=== PATIENT | male | born 1955 | race Caucasian/White ===

== ENCOUNTER 2021-01-23 07:02 | Inpatient (IN) | payer OTHER ==
[2021-01-23 07:32] LABS: Absolute Lymphocytes (CBC) 0.5 K/uL (0.7-4.9); Basophils % 0.8 % (0-1.3); Hematocrit 29.1 % (39.6-49.0); Lymphocytes % 13.1 % (15.3-44.8); MPV 8.6 fL (7.6-11.3); RBC Red Blood Cell Count 2.65 M/uL (4.33-5.43)
[2021-01-23] MEDS ORDERED: NA CHLORIDE 0.9% 0 ML ONE (07:51)
[2021-01-23] MEDS ORDERED: METRONIDAZOLE 500mg IVPB 500 MG/100 ML BAG IV ONE (07:51)
[2021-01-23 07:53] LABS: Albumin 2.1 g/dL (3.4-5.0); Bilirubin Direct 0.7 mg/dL (0-0.2); Bilirubin Total 0.9 mg/dL (0.2-1.0); Potassium 4.3 mmol/L (3.5-5.1); Protein, Total 6.7 g/dL (6.4-8.2)
--- NOTE | 2021-01-23 09:34 | EDPHYS ---
Physician Documentation [facility] Name: Darryn Tristan Age: 65 yrs Sex: Male : 1955 Arrival Date: 01/23/2021 Time: 07:13 Bed 6 Private MD: ED Physician Vanessa Peacock HPI: 01/23 09:32 This 65 yrs old Male presents to ER via EMS with complaints of hypoglycemia. ma2 09:32 Onset: The symptoms/episode began/occurred gradually, 1 day(s) ago. Severity of ma2 symptoms: At their worst the symptoms were moderate in the emergency department the symptoms are unchanged. The patient has not experienced similar symptoms in the past. Historical: - Allergies: 07:16 No Known Allergies; jd3 - Home Meds: 07:16 glimepiride 4 mg Oral tab 2 tabs once daily [Active]; metformin 500 mg Oral tab 2 tabs jd3 daily [Active]; Levemir FlexTouch U-100 Insulin subcutaneous 34 unit daily [Active]; Bystolic 5 mg oral tab 1 tab once daily [Active]; lisinopril-hydrochlorothiazide 20-12.5 mg oral tab 0.5 tabs once daily [Active]; atorvastatin 40 mg oral tab 1 tab once daily [Active]; levothyroxine 100 mcg cap 1 cap once daily [Active]; pantoprazole 40 mg oral TbEC 2 tabs once daily [Active]; Augmentin 875-125 mg Oral tab "when needed" [Active]; 07:25 aspirin 81 mg Oral chew 1 tab once daily [Active]; gabapentin 300 mg oral cap "when jd3 needed" [Active]; topiramate 25 mg oral tab 1 tab once daily [Active]; - PMHx: 07:16 Hypertensive disorder; Diabetes mellitus; jd3 - Immunization history:: Adult Immunizations up to date, Client reports receiving the 2nd dose of the Covid vaccine. - Social history:: Smoking status: Patient/guardian denies using tobacco, but has a distant history of tobacco abuse, Patient/guardian denies using alcohol, street drugs, The patient lives with family. - Family history:: not pertinent. ROS: 09:32 Constitutional: Negative for fever, chills, and weight loss. ma2 09:32 All other systems are negative. Exam: 09:32 Constitutional: This is a well developed, well nourished patient who is awake, alert, ma2 and in no acute distress. Head/Face: Normocephalic, atraumatic. Eyes: Pupils equal round and reactive to light, extra-ocular motions intact. Lids and lashes normal. Conjunctiva and sclera are non-icteric and not injected. Cornea within normal limits. Periorbital areas with no swelling, redness, or edema. ENT: Nares patent. No nasal discharge, no septal abnormalities noted. Tympanic membranes are normal and external auditory canals are clear. Oropharynx with no redness, swelling, or masses, exudates, or evidence of obstruction, uvula midline. Mucous membranes moist. Neck: Trachea midline, no thyromegaly or masses palpated, and no cervical lymphadenopathy. Supple, full range of motion without nuchal rigidity, or vertebral point tenderness. No Meningismus. Chest/axilla: Normal chest wall appearance and motion. Nontender with no deformity. No lesions are appreciated. Cardiovascular: Regular rate and rhythm with a normal S1 and S2. No gallops, murmurs, or rubs. Normal PMI, no JVD. No pulse deficits. Respiratory: Lungs have equal breath sounds bilaterally, clear to auscultation and percussion. No rales, rhonchi or wheezes noted. No increased work of breathing, no retractions or nasal flaring. Abdomen/GI: Soft, non-tender, with normal bowel sounds. No distension or tympany. No guarding or rebound. No evidence of tenderness throughout. Skin: Warm, dry with normal turgor. Normal color with no rashes, no lesions, and no evidence of cellulitis. MS/ Extremity: Pulses equal, no cyanosis. Neurovascular intact. Full, normal range of motion. Neuro: Awake and alert, GCS 15, oriented to person, place, time, and situation. Cranial nerves II-XII grossly intact. Motor strength 5/5 in all extremities. Sensory grossly intact. Cerebellar exam normal. Normal gait. Vital Signs: 07:27 BP 125 / 60; Pulse 65; Resp 16 S; Temp 98.4(O); Pulse Ox 98.4% on R/A; Weight 44.63 kg jd3 (R); Height 6 ft. 3 in. (190.50 cm) (R); Pain 2/10; 08:30 BP 116 / 71; Pulse 61; Resp 15 S; Pulse Ox 99% on R/A; jd3 10:58 BP 105 / 60; Pulse 67; Resp 19 S; Pulse Ox 98% on R/A; jd3 07:27 Body Mass Index 12.30 (44.63 kg, 190.50 cm) jd3 MDM: 07:15 Patient medically screened. ma2 09:32 Differential Diagnosis Patient has hypoglycemia, on oral hypoglycemic and insulin, will [facility] admit for observation. Data reviewed: vital signs, nurses notes, EMS record. Counseling: I had a detailed discussion with the patient and/or guardian regarding: the historical points, exam findings, and any diagnostic results supporting the discharge/admit diagnosis, the presence of at least one elevated blood pressure reading (>120/80) during this emergency department visit, the need for outpatient follow up. Response to treatment: the patient's symptoms have markedly improved after treatment. 01/23 07:15 Order name: Basic Metabolic Panel; Complete Time: 09:10 [facility] 01/23 07:15 Order name: CBC with Diff ak2 01/23 07:15 Order name: Hepatic Function; Complete Time: 09:10 [facility] 01/23 07:15 Order name: Lipase; Complete Time: 09:10 [facility] 01/23 07:33 Order name: Glucose, Ancillary Testing; Complete Time: 07:50 EDMS 01/23 07:51 Order name: COVID-19 SARS RT PCR (Document "Date of Onset" if Symptomatic); Complete [facility] Time: 09:01/23 07:15 Order name: IV Saline Lock; Complete Time: 07:28 [facility] 01/23 07:15 Order name: Labs collected and sent; Complete Time: 07:28 [facility] 01/23 07:25 Order name: Diet Regular; Complete Time: 07:25 d3 01/23 09:48 Order name: Glucose, Ancillary Testing EDMS Administered Medications: 07:57 Drug: Flagyl (metroNIDAZOLE) 500 mg Volume: 100 ml; Route: IVPB; Rate: 200 ml/hr; jd3 Infused Over: 30 mins; Site: left antecubital; 08:30 Follow up: Response: No adverse reaction; IV Status: Completed infusion; IV Intake: jd3 100ml 09:47 Drug: D50W 25 ml Route: IVP; Site: left antecubital; jd3 10:45 Follow up: Response: No adverse reaction jd3 10:57 Drug: D5-NS 1000 ml Route: IV; Rate: 50 ml/hr; Site: left forearm; jd3 11:16 Follow up: Response: No adverse reaction; IV Status: Infusion continued upon admission jd3 Disposition Summary: 01/23/21 09:33 Hospitalization Ordered Hospitalization Status: Observation ma2 Provider: Moreno Prasad [facility] Location: Telemetry/MedSurg (observation) ma2 Condition: Stable ma2 Problem: new ma2 Symptoms: are unchanged ma2 Bed/Room Type: Standard [facility] Room Assignment: 223(01/23/21 10:57) eb Diagnosis - Other hypoglycemia ma2 Discharge Instructions: - Discharge Summary Sheet jd3 Forms: - Medication Reconciliation Form ma2 - SBAR form ma2 Signatures: Dispatcher [employer] Dale Whalen RN RN jd3 Vanessa Peacock MD MD ma2 Rhoda Servin Corrections: (The following items were deleted from the chart) :57 09:33 ma2 eb
--- NOTE | 2021-01-23 09:34 | ER ---
Nurse's Notes [facility] Name: Darryn Tristan Age: 65 yrs Sex: Male : 1955 Arrival Date: 01/23/2021 Time: 07:13 Bed 6 Private MD: Diagnosis: Other hypoglycemia Presentation: 01/23 07:13 Chief complaint: EMS states: "we were toned out for a pt with hypoglycemia. this has jd3 been the second time recently. he reported that his blood sugar is generally controlled until he got a stomach infection that his primary is helping with treating. this morning his blood sugar was low at 53. we started a 22 G IV to the left FA. we gave 25 G of sugar and it came up to 123.". Coronavirus screen: At this time, the client does not indicate any symptoms associated with coronavirus-19. Ebola Screen: Patient negative for fever greater than or equal to 101.5 degrees Fahrenheit, and additional compatible Ebola Virus Disease symptoms. Initial Sepsis Screen: Does the patient meet any 2 criteria? No. Patient's initial sepsis screen is negative. Does the patient have a suspected source of infection? No. Patient's initial sepsis screen is negative. Risk Assessment: Do you want to hurt yourself or someone else? Patient reports no desire to harm self or others. Onset of symptoms was January 23, 2021. 07:13 Method Of Arrival: EMS: [facility] jd3 07:13 Acuity: ANGEL 3 jd3 Historical: - Allergies: 07:16 No Known Allergies; jd3 - Home Meds: 07:16 glimepiride 4 mg Oral tab 2 tabs once daily [Active]; metformin 500 mg Oral tab 2 tabs jd3 daily [Active]; Levemir FlexTouch U-100 Insulin subcutaneous 34 unit daily [Active]; Bystolic 5 mg oral tab 1 tab once daily [Active]; lisinopril-hydrochlorothiazide 20-12.5 mg oral tab 0.5 tabs once daily [Active]; atorvastatin 40 mg oral tab 1 tab once daily [Active]; levothyroxine 100 mcg cap 1 cap once daily [Active]; pantoprazole 40 mg oral TbEC 2 tabs once daily [Active]; Augmentin 875-125 mg Oral tab "when needed" [Active]; 07:25 aspirin 81 mg Oral chew 1 tab once daily [Active]; gabapentin 300 mg oral cap "when jd3 needed" [Active]; topiramate 25 mg oral tab 1 tab once daily [Active]; - PMHx: 07:16 Hypertensive disorder; Diabetes mellitus; jd3 - Immunization history:: Adult Immunizations up to date, Client reports receiving the 2nd dose of the Covid vaccine. - Social history:: Smoking status: Patient/guardian denies using tobacco, but has a distant history of tobacco abuse, Patient/guardian denies using alcohol, street drugs, The patient lives with family. - Family history:: not pertinent. Screenin:28 Abuse screen: Denies threats or abuse. Nutritional screening: No deficits noted. jd3 Tuberculosis screening: No symptoms or risk factors identified. Fall Risk Gait- Weak (10 pts.). Total Foster Fall Scale indicates No Risk (0-24 pts). Assessment: 07:32 General: Appears in no apparent distress. comfortable, Behavior is calm, cooperative. jd3 Pain: Complains of pain in generalized abdomal pain. Neuro: Level of Consciousness is awake, alert, obeys commands, Oriented to person, place, time, situation. Cardiovascular: Capillary refill < 3 seconds Patient's skin is warm and dry. Cardiovascular: Edema is 1+ to BLE nonpitting. Respiratory: Airway is patent Respiratory effort is even, unlabored, Respiratory pattern is regular, symmetrical, Breath sounds are clear bilaterally. GI: Reports lower abdominal pain, upper abdominal pain. Musculoskeletal:. 08:29 Reassessment: Patient and/or family updated on plan of care and expected duration. Pain jd3 level reassessed. Patient is alert, oriented x 3, equal unlabored respirations, skin warm/dry/pink. pt ate approx 70% of breakfast. 09:30 Reassessment: reassessed pt fsbs, 58, provider notified, new order for 1/2 amp d50, [facility] provided pt with juice and apple sauce. 10:58 Reassessment: Patient appears in no apparent distress at this time. No changes from [facility] previously documented assessment. Patient and/or family updated on plan of care and expected duration. Pain level reassessed. Patient is alert, oriented x 3, equal unlabored respirations, skin warm/dry/pink. Vital Signs: 07:27 BP 125 / 60; Pulse 65; Resp 16 S; Temp 98.4(O); Pulse Ox 98.4% on R/A; Weight 44.63 kg jd3 (R); Height 6 ft. 3 in. (190.50 cm) (R); Pain 2/10; 08:30 BP 116 / 71; Pulse 61; Resp 15 S; Pulse Ox 99% on R/A; jd3 10:58 BP 105 / 60; Pulse 67; Resp 19 S; Pulse Ox 98% on R/A; jd3 07:27 Body Mass Index 12.30 (44.63 kg, 190.50 cm) jd3 ED Course: 07:13 Patient arrived in ED. jd3 07:15 Vanessa Peacock MD is Attending Physician. ma2 07:16 Triage completed. jd3 07:27 Dale Mtz RN is Primary Nurse. jd3 07:27 Arm band placed on. jd3 07:28 Maintain EMS IV. Dressing intact. Good blood return noted. Site clean \\T\\ dry. Gauge \\T\\ rebecca 3 site: 18 G left AC. 07:39 Patient has correct armband on for positive identification. Bed in low position. Call jd3 light in reach. Side rails up X2. residential monitor on. Pulse ox on. NIBP on. 09:12 clean beside commode. kd3 09:33 Moreno Prasad DO is Hospitalizing Provider. ma2 11:41 No provider procedures requiring assistance completed. Patient admitted, IV remains in jd3 place. Administered Medications: 07:57 Drug: Flagyl (metroNIDAZOLE) 500 mg Volume: 100 ml; Route: IVPB; Rate: 200 ml/hr; jd3 Infused Over: 30 mins; Site: left antecubital; 08:30 Follow up: Response: No adverse reaction; IV Status: Completed infusion; IV Intake: jd3 100ml 09:47 Drug: D50W 25 ml Route: IVP; Site: left antecubital; jd3 10:45 Follow up: Response: No adverse reaction jd3 10:57 Drug: D5-NS 1000 ml Route: IV; Rate: 50 ml/hr; Site: left forearm; jd3 11:16 Follow up: Response: No adverse reaction; IV Status: Infusion continued upon admission jd3 Intake: 08:30 IV: 100ml; Total: 100ml. jd3 Outcome: 09:33 Decision to Hospitalize by Provider. ma2 11:41 Admitted to Med/surg accompanied by tech, via wheelchair, room 223, with chart, Report alba called to Mihaela PINK 11:41 Condition: stable 11:41 Instructed on the need for admit, Demonstrated understanding of instructions. 11:42 Patient left the ED. alba Signatures: Dale Mtz RN RN Vanessa Kay MD MD ma2 Theresa Abraham kd3 Corrections: (The following items were deleted from the chart) 07:39 07:32 General: Appears in no apparent distress. comfortable, alba willis 10:58 07:28 Maintain EMS IV. Dressing intact. Good blood return noted. Site clean \\T\\ dry. jd3 Gauge \\T\\ site: 22 G left AC. jreina
[2021-01-23] MEDS ORDERED: D50W 50 ML IV ONE (09:40)
[2021-01-23] MEDS ORDERED: D5 0.9 NS 1,000 ML IV ONE (10:48)
--- NOTE | 2021-01-23 11:00 | P.HP ---
Certification for Inpatient Patient admitted to: Inpatient With expected LOS: >2 Midnights Patient will require the following post-hospital care: None Practitioner: I am a practitioner with admitting privileges, knowledge of patient current condition, hospital course, and medical plan of care. Services: Services provided to patient in accordance with Admission requirements found in Title 42 Section 412.3 of the Code of Federal Regulations Patient History Date of Service: 01/23/21 Primary Care Provider: Ilsa Villar NP; Nephrology-Dr. Velazquez; GI-Dr. Araya Reason for admission: Hypoglycemia History of Present Illness: 65-year-old male with history of chronic renal disease, diabetes mellitus type 2, hypertension, alcoholic cirrhosis and anemia of chronic disease. Patient presented to the emergency room with low blood sugar. He was found to have blood sugar low 50. He also reports that EMS was in his house yesterday for low blood sugar. He denied any significant chest pain, shortness of breath. He does report of chronic diarrhea. His medications have been recently adjusted. Patient takes glimepiride, Metformin and Lantus. He came to the ER for further evaluation. Patient found to have hypoglycemia. Initial blood sugar 58. White count 4.2, hemoglobin 9.5. Platelet count 104. Sodium 142, potassium 4.3. BUN 48, creatinine 3.85 with a GFR of 16. Bicarb is 14. Lipase 532. AST ALT reviewed. Covid test negative. Patient was started on IV fluids. Patient admitted for further evaluation and treatment. When saw the patient in ER, patient reports that his diarrhea has been chronic over the past 3 months. Patient seen by GI in the past with prior liver ultrasound showing liver cirrhosis in 2016. Patient reports that his medications have been recently adjusted by PCP for his blood sugar. Thyroid medication also recently adjusted. Patient also takes blood pressure medication as well. Patient recently seen by hematology for his anemia and thrombocytopenia. Allergies No Known Allergies Allergy (Unverified 04/23/20 10:39) - Past Medical/Surgical History Diabetic: Yes -: Diabetes mellitus type 2 insulin-dependent -: Hypertension -: Alcoholic liver cirrhosis -: Chronic renal disease -: Anemia of chronic disease -: Chronic thrombocytopenia likely related to liver disease -: Seasonal allergies -: GERD -: History of alcohol abuse Past Surgical History: Reviewed- Non-Contributory Psychosocial/ Personal History: Patient lives at home. Patient is - Family History Family History: Reviewed- Non-Contributory - Social History Smoking Status: Never smoker Alcohol use: Yes CD- Drugs: No Caffeine use: Yes Place of Residence: Home Review of Systems General: Weakness, Malaise, As per HPI Eyes: Unremarkable ENT: Unremarkable Respiratory: Unremarkable Cardiovascular: Unremarkable Gastrointestinal: Unremarkable Genitourinary: Unremarkable Musculoskeletal: Unremarkable Integumentary: Unremarkable Neurological: Unremarkable Lymphatics: Unremarkable Physical Examination - Studies Laboratory Data (last 24 hrs) 01/23/21 07:22: WBC 4.20 L, Hgb 9.5 L, Hct 29.1 L, Plt Count 104 L 01/23/21 07:22: Sodium 142, Potassium 4.3, BUN 48 H, Creatinine 3.85 H D, Glucose 94, Total Bilirubin 0.9, AST 13 L, ALT 10 L, Alkaline Phosphatase 142 H, Lipase 532 H Assessment and Plan - Plan COVID: Negative Physical Exam: GENERAL: The patient is a well-developed, well-nourished, in no apparent distress. Alert and oriented x3. VITAL SIGNS: Reviewed HEENT: Head is normocephalic and atraumatic. Extraocular muscles are intact. Pupils are equal, round, and reactive to light and accommodation. Nares appeared normal. Mouth is well hydrated and without lesions. Mucous membranes are moist. NECK: Supple. No carotid bruits. No lymphadenopathy or thyromegaly. LUNGS: Clear to auscultation. No crackles or wheezes are heard. HEART: Regular rate and rhythm, no appreciable gallops, rubs, murmurs or extra heart sounds ABDOMEN: Patient with some ascites. EXTREMITIES: Without any cyanosis, clubbing, rash, lesions or peripheral edema. NEUROLOGIC: The patient is oriented to person, place and time. Strength and sens ation are grossly intact. Face is symmetric. SKIN: No significant edema to the lower extremities. Impression: Hypoglycemia with diabetes mellitus type 2 insulin-dependent Acute on chronic renal disease stage IV with metabolic acidosis Alcoholic liver cirrhosis Chronic diarrhea Hypertension Anemia of chronic disease Chronic thrombocytopenia likely related to liver disease Hypothyroidism GERD Plan: Hypoglycemia with diabetes mellitus type 2 insulin-dependent: Patient will be admitted for further evaluation and treatment. We will start D5 half-normal at 50 cc/h to maintain blood sugar. Will monitor blood sugars closely. Will check A1c. Discontinue glimepiride and metformin at this time. We will also discont inue Levemir and continue sliding scale only. Will monitor and adjust medication appropriately. Anticipate improvement over the next 72 hours. Acute on chronic renal disease stage IV with metabolic acidosis: We will start IV fluids. We will also start sodium bicarbonate. Will discuss with nephrology who has been consulted. Will check renal ultrasound. Await further r ecommendations. Alcoholic liver cirrhosis: Patient with prior liver ultrasound in 2016 showed cirrhosis. Will consult GI for further recommendation. Will check hepatitis panel and HIV panel. Will monitor liver function test. Chronic diarrhea: We will discontinue Flagyl. Provide lactobacillus. Will check stool studies for evaluation. Will check C. difficile as well. GI consulted for further recommendation. Will provide Imodium as needed. Hypertension: Discontinue lisinopril hydrochlorothiazide. Continue Bystolic w ith parameters in place. Will monitor and adjust medication appropriately. Anemia of chronic disease : This is likely of chronic disease related to his liver and kidney disease. Will monitor closely. Maintain hemoglobin above 7.5. Patient has been seen by hematology recently. Chronic thrombocytopenia likely related to liver disease: This is likely related to his liver disease. Hypothyroidism: Medication recently adjusted by PCP. Continue with levothyroxine 125 mcg daily. Will check TSH and free T4. GERD: Continue Protonix. Code Status: Full Code DVT prophylaxis: SCDs Advanced Care Planning-30 minutes: Home at discharge Discharge Plan: Home Plan to discharge in: Greater than 2 days - Advance Directives Does patient have a Living Will: Yes Does patient have a Durable POA for Healthcare: No - Code Status/Comfort Care Code Status Assessed: Yes (Patient is full code) Time Spent Managing Pts Care (In Minutes): 55
--- NOTE | 2021-01-23 11:55 | P.CNS ---
Date of Consult: 01/23/21 Reason for Consult: ESTEVAN/ /CKD Requesting Physician: Moreno Prasad Primary Care Provider: Ilsa Villar NP; Nephrology-Dr. Velazquez; GI-Dr. Araya Chief Complaint: Hypoglycemia History of Present Illness: 65-year-old male with history of chronic renal disease, diabetes mellitus type 2, hypertension, alcoholic cirrhosis and anemia of chronic disease. Patient presented to the emergency room with low blood sugar. He was found to have blood sugar low 50. He also reports that EMS was in his house yesterday for low blood sugar. He denied any significant chest pain, shortness of breath. He does report of chronic diarrhea. His medications have been recently adjusted. Patient takes glimepiride, Metformin and Lantus. He came to the ER for further evaluation. 09:32 This 65 yrs old Male presents to ER via EMS with complaints of hypoglycemia. ma2 09:32 Onset: The symptoms/episode began/occurred gradually, 1 day(s) ago. Severity of ma2 symptoms: At their worst the symptoms were moderate in the emergency department the symptoms are unchanged. The patient has not experienced similar symptoms in the past. Allergies No Known Allergies Allergy (Unverified 04/23/20 10:39) Home medications list reviewed: Yes Home Medications: Aspirin 1 tab PO DAILY 01/23/21 Atorvastatin Calcium 1 tab PO DAILY 01/23/21 Cholecalciferol (Vitamin D3) [Vitamin D3] 1 tab PO DAILY 01/23/21 Gabapentin 1 tab PO DAILY PRN 01/23/21 Glimepiride 1 tab PO BID 01/23/21 Insulin Detemir [Levemir] 34 units SQ DAILY 01/23/21 Levothyroxine [Synthroid*] 1 tab PO DAILY 01/23/21 Lisinopril/Hydrochlorothiazide [Lisinopril-Hctz 20-12.5 mg Tab] 0.5 tab PO DAILY 01/23/21 Metformin HCl 1 tab PO BID 01/23/21 Nebivolol HCl [Bystolic] 2 tab PO DAILY 01/23/21 [place]-3/Dha/Epa/Fish Oil [Fish Oil 1,000 mg Softgel] 1 tab PO DAILY 01/23/21 Pantoprazole Sodium 1 tab PO BID 01/23/21 Topiramate 1 tab PO DAILY 01/23/21 - Past Medical/Surgical History Diabetic: Yes -: Diabetes mellitus type 2 insulin-dependent -: Hypertension -: Alcoholic liver cirrhosis -: Chronic renal disease -: Anemia of chronic disease -: Chronic thrombocytopenia likely related to liver disease -: Seasonal allergies -: GERD -: History of alcohol abuse Psychosocial/ Personal History: Patient lives at home. Patient is - Social History Alcohol use: Yes CD- Drugs: No Caffeine use: Yes Place of Residence: Home Review of Systems 10-point ROS is otherwise unremarkable Gastrointestinal: Diarrhea Neurological: Weakness Physical Examination General: In no apparent distress, Oriented x3, Cooperative HEENT: Atraumatic Neck: Supple Respiratory: Clear to auscultation bilaterally Cardiovascular: No edema, Regular rate/rhythm Gastrointestinal: Soft and benign, Non-distended Musculoskeletal: No clubbing, No contractures Integumentary: No rashes, No cyanosis Neurological: Normal speech Laboratory Data (last 24 hrs) 01/23/21 07:22: WBC 4.20 L, Hgb 9.5 L, Hct 29.1 L, Plt Count 104 L 01/23/21 07:22: Sodium 142, Potassium 4.3, BUN 48 H, Creatinine 3.85 H D, Glucose 94, Total Bilirubin 0.9, AST 13 L, ALT 10 L, Alkaline Phosphatase 142 H, Lipase 532 H Imagings Data: EXAM DESCRIPTION: US - Renal Ultrasound-Complete - 01/23/2021 12:57 pm CLINICAL HISTORY: acute on chronic renal disease COMPARISON: ABDOMINAL EXAM COMPLETE dated 05/06/2015; Liver Only dated 01/23/2021 FINDINGS: The right kidney measures 11.7 x 5.2 x 4.8 cm. The left kidney measures 11.5 x 5.3 x 4.1 cm. Renal cortical thickness are normal. Echogenicity is increased slightly probably from underlying medical renal disease. No hydronephrosis or suspicious renal mass. Bladder was not adequately visualized IMPRESSION: No hydronephrosis or suspicious renal mass. Probable underlying medical renal disease. EXAM DESCRIPTION: US - Liver Only - 01/23/2021 12:49 pm CLINICAL HISTORY: alcohol liver cirrhosis COMPARISON: No comparisons TECHNIQUE: Sonographic evaluation of the right upper quadrant was performed as a dedicated liver ultrasound study. FINDINGS: Liver shows a coarsened echogenicity to the parenchyma. There is macro lobulation of the capsule. No focal lesion of the liver parenchyma identifiable. Doppler evaluation shows normal velocity and flow direction of the portal vein. Small to moderate amount of ascites is present adjacent to the liver and spleen. The spleen is 17 cm in maximum dimension. IMPRESSION: Small liver with advanced cirrhotic liver changes. No focal liver parenchymal lesion identified. Splenomegaly with no focal splenic abnormality. No portal vein abnormality. Small to moderate amount of ascites present, not fully evaluated. Conclusions/Impression: ESTEVAN likely hypovolemia CKD III -No NSAIDs -Continue IVF Acidosis -Continue oral bicarb DM II with CKD -RISS -Hold Metformin Moderate malnutrition -Renal diet Anemia in chronic illness Pancytopenia -Monitor H&H Liver cirrhosis -Monitor LFT -Hepatitis panel pending Thank you kindly for the consultation.
[2021-01-23] MEDS: INSULIN -REGULAR HUMAN 50 UNIT/0.5 ML ML SQ SCH ×3 (11:57→21:00)
[2021-01-23] MEDS ORDERED: D5.45NS W/KCL 20MEQ 1,000 ML IV SCH (11:57)
[2021-01-23] MEDS ORDERED: ONDANSETRON 4 MG/2 ML VIAL IV PRN (11:57)
[2021-01-23] MEDS ORDERED: ACETAMINOPHEN 500 MG TAB PO PRN (11:57)
--- NOTE | 2021-01-23 13:07 | RAD REPORT ---
EXAM DESCRIPTION: US - Liver Only - 01/23/2021 12:49 pm CLINICAL HISTORY: alcohol liver cirrhosis COMPARISON: No comparisons TECHNIQUE: Sonographic evaluation of the right upper quadrant was performed as a dedicated liver ult rasound study. FINDINGS: Liver shows a coarsened echogenicity to the parenchyma. There is macro lobulation of the c apsule. No focal lesion of the liver parenchyma identifiable. Doppler evaluation shows normal velocit y and flow direction of the portal vein. Small to moderate amount of ascites is present adjacent to t he liver and spleen. The spleen is 17 cm in maximum dimension. IMPRESSION: Small liver with advanced cirrhotic liver changes. No focal liver parenchymal lesion mouna ntified. Splenomegaly with no focal splenic abnormality. No portal vein abnormality. Small to moderate amount of ascites present, not fully evaluated.
--- NOTE | 2021-01-23 13:13 | RAD REPORT ---
EXAM DESCRIPTION: US - Renal Ultrasound-Complete - 01/23/2021 12:57 pm CLINICAL HISTORY: acute on chronic renal disease COMPARISON: ABDOMINAL EXAM COMPLETE dated 05/06/2015; Liver Only dated 01/23/2021 FINDINGS: The right kidney measures 11.7 x 5.2 x 4.8 cm. The left kidney measures 11.5 x 5.3 x 4.1 cm. Renal cortical thickness are normal. Echogenicity is increased slightly probably from underlying medical renal disease. No hydronephrosis or suspicious renal mass. Bladder was not adequately visualized IMPRESSION: No hydronephrosis or suspicious renal mass. Probable underlying medical renal disease.
[2021-01-23 13:31] VITALS: BMI 25.0
[2021-01-23] MEDS: LACTOBACILLUS/ACIDOPHILUS TAB PO SCH ×2 (13:44→22:21)
[2021-01-23 14:29] LABS: Blood Morphology Comment NOTED (NOT SEEN); Macrocytosis 1+; Platelet Estimate DECR; White Blood Cell Scan OK (OK)
[2021-01-23] MEDS ORDERED: DICYCLOMINE HCL 10 MG CAP PO PRN (14:42)
[2021-01-23] MEDS ORDERED: BISMUTH SUBSALICYL 262MG/15ML-240 ML BTL PO ONE ×2 (15:00)
[2021-01-23 16:26] LABS: Barbiturates NEGATIVE (NEGATIVE); Benzodiazepines NEGATIVE (NEGATIVE); Cocaine NEGATIVE (NEGATIVE); METHAMPHETAM NEGATIVE (NEGATIVE); Methadone NEGATIVE (NEGATIVE); Opiates NEGATIVE (NEGATIVE); Phencyclidine NEGATIVE (NEGATIVE); THC Cannibis NEGATIVE (NEGATIVE)
[2021-01-23 16:29] LABS: Urine Appearance CLEAR (Clear); Urine Bilirubin NEGATIVE (Negative); Urine Blood NEGATIVE (Negative); Urine Color ORANGE (Yellow); Urine Glucose NEGATIVE (Negative); Urine Protein NEGATIVE (Negative); Urine Specific Gravity 1.015 (1.005-1.030); Urine Urobilinogen 0.2 mg/dL (0.2-1.0)
[2021-01-23 16:53] LABS: Urine Microscopic Reflex ORDER UMIC
[2021-01-23 16:57] LABS: Urine RBC <5 /HPF (NONE SEEN)
[2021-01-23 16:59] LABS: Urine Amorphous Sediment 1+ /HPF (NONE SEEN); Urine Bacteria <20 /HPF (NONE SEEN); Urine Mucus 1+ /HPF (NONE SEEN)
[2021-01-23] MEDS: SODIUM BICARB 325 MG TAB PO SCH (22:21)
[2021-01-23] MEDS: ATORVASTATIN 40 MG TAB PO SCH (22:21)
[2021-01-24] MEDS: LOPERAMIDE HCL 2 MG CAPSULE PO PRN ×2 (02:01→10:51)
--- NOTE | 2021-01-24 06:07 | P.PN ---
Subjective Date of Service: 01/24/21 Primary Care Provider: Ilsa Villar NP; Nephrology-Dr. Velazquez; GI-Dr. Araya Chief Complaint: Hypoglycemia Subjective: Improving, Doing well Physical Examination - Vital Signs Temperature: 97.7 F Blood Pressure: 109/62 Pulse: 63 Respirations: 20 Pulse Ox (%): 99 - Studies Laboratory Data (last 24 hrs) 01/23/21 07:22: WBC 4.20 L, Hgb 9.5 L, Hct 29.1 L, Plt Count 104 L 01/23/21 07:22: Sodium 142, Potassium 4.3, BUN 48 H, Creatinine 3.85 H D, Glucose 94, Total Bilirubin 0.9, AST 13 L, ALT 10 L, Alkaline Phosphatase 142 H, Lipase 532 H Assessment & Plan Discharge Plan: Home Plan to discharge in: 24 Hours Physician Review Additional Text: COVID: Negative Liver US: COMPARISON: No comparisons TECHNIQUE: Sonographic evaluation of the right upper quadrant was performed as a dedicated liver ultrasound study. FINDINGS: Liver shows a coarsened echogenicity to the parenchyma. There is macro lobulation of the capsule. No focal lesion of the liver parenchyma identifiable. Doppler evaluation shows normal velocity and flow direction of the portal vein. Small to moderate amount of ascites is present adjacent to the liver and spleen. The spleen is 17 cm in maximum dimension. IMPRESSION: Small liver with advanced cirrhotic liver changes. No focal liver parenchymal lesion identified. Splenomegaly with no focal splenic abnormality. No portal vein abnormality. Small to moderate amount of ascites present, not fully evaluated. Renal US: COMPARISON: ABDOMINAL EXAM COMPLETE dated 05/06/2015; Liver Only dated 01/23/2021 FINDINGS: The right kidney measures 11.7 x 5.2 x 4.8 cm. The left kidney measures 11.5 x 5.3 x 4.1 cm. Renal cortical thickness are normal. Echogenicity is increased slightly probably from underlying medical renal disease. No hydronephrosis or suspicious renal mass. Bladder was not adequately visualized IMPRESSION: No hydronephrosis or suspicious renal mass. Probable underlying medical renal disease. Physical Exam: GENERAL: The patient is a well-developed, well-nourished, in no apparent distress. Alert and oriented x3. VITAL SIGNS: Reviewed HEENT: Neck supple LUNGS: Clear to auscultation. No crackles or wheezes are heard. HEART: Regular rate and rhythm, no appreciable gallops, rubs, murmurs or extra heart sounds ABDOMEN: Patient with some ascites. EXTREMITIES: Without any cyanosis, clubbing, rash, lesions or peripheral edema. NEUROLOGIC: The patient is oriented to person, place and time. Strength and sensation are grossly intact. Face is symmetric. SKIN: No significant edema to the lower extremities. Impression: Hypoglycemia with diabetes mellitus type 2 insulin-dependent Acute on chronic renal disease stage IV with metabolic acidosis Alcoholic liver cirrhosis Chronic diarrhea Hypertension Anemia of chronic disease Chronic thrombocytopenia likely related to liver disease Hypothyroidism GERD Plan: Hypoglycemia with diabetes mellitus type 2 insulin-dependent: Hypoglycemia much improved. Will discontinue IV fluid at this time. Will monitor on oral nutrition only. Patient remains off glimepiride, Metformin and Levemir. Hemoglobin A1c 5.1. Patient appears to be well controlled. Likely no need for diabetic medication at discharge. Will monitor closely. Diarrhea improved. Stool cultures pending. Possible discharge as early as today or tomorrow pend ing how his blood sugars are. I will increase his oral bicarbonate. Will discuss with nephrology. Acute on chronic renal disease stage IV with metabolic acidosis: Discontinue IV fluids. Increase sodium bicarbonate. Will discuss with nephrology who has been consulted. Renal ultrasound shows medical renal disease. Await further recommendations. Alcoholic liver cirrhosis: Patient with prior liver ultrasound in 2016 showed cirrhosis. Liver ultrasound shows small liver with advanced cirrhotic changes. Patient will need close follow-up with GI as an outpatient to further address. Chronic diarrhea: Diarrhea appears improved. Stool cultures obtained. Continue with lactobacillus. Await C. difficile antigen. Will provide Imodium as needed. Hypertension: Lisinopril hydrochlorothiazide has been discontinued due to his renal disease. Continue Bystolic with parameters in place. Will monitor and adjust medication appropriately. Anemia of chronic disease : This is likely of chronic disease related to his liver and kidney disease. Will monitor closely. Maintain hemoglobin above 7.5. Patient has been seen by hematology recently. Chronic thrombocytopenia likely related to liver disease: This is likely related to his liver disease. Hypothyroidism: Medication recently adjusted by PCP. Continue with levothyroxine 125 mcg daily. Will check TSH and free T4. GERD: Continue Protonix. Code Status: Full Code DVT prophylaxis: SCDs Advanced Care Planning-30 minutes: Home at discharge Time Spent Managing Pts Care (In Minutes): 55
[2021-01-24] MEDS: PANTOPRAZOLE 40MG TABLET PO SCH ×2 (06:09→10:46)
[2021-01-24] MEDS: LEVOTHYROXINE SOD 0.125 MG TAB PO SCH (06:09)
[2021-01-24 06:16] LABS: Absolute Lymphocytes (CBC) 0.4 K/uL (0.7-4.9); Basophils % 0.9 % (0-1.3); Hematocrit 27.7 % (39.6-49.0); Lymphocytes % 10.3 % (15.3-44.8); MPV 8.4 fL (7.6-11.3); RBC Red Blood Cell Count 2.56 M/uL (4.33-5.43)
[2021-01-24 06:54] LABS: ALT/SGPT 11 U/L (12-78); AST/SGOT 11 U/L (15-37); Alkaline Phosphatase 129 U/L (45-117); BUN Blood Urea Nitrogen 51 mg/dL (7-18); Folic Acid, (Folate) 19.7 ng/mL (3.1-17.5); Glucose Level 170 mg/dL (74-106); HDL Cholesterol 20 mg/dL (40-60); Phosphorus 3.6 mg/dL (2.5-4.9); Potassium 4.8 mmol/L (3.5-5.1); Protein, Total 6.5 g/dL (6.4-8.2); Sodium Level 140 mmol/L (136-145); Uric Acid 9.9 mg/dL (3.5-7.2)
[2021-01-24 06:55] LABS: Bicarbonate 14 mmol/L (21-32); LDL Cholesterol, Calculated 19 (<130)
[2021-01-24] MEDS: INSULIN -REGULAR HUMAN 50 UNIT/0.5 ML ML SQ SCH ×4 (07:30→21:00)
[2021-01-24] MEDS: SODIUM BICARB 325 MG TAB PO SCH ×4 (09:00→21:15)
[2021-01-24] MEDS: VITAMIN D 1000 UNIT TAB PO SCH (10:45)
[2021-01-24] MEDS: ASCORBIC ACID 500 MG TABLET PO SCH (10:46)
[2021-01-24] MEDS: LACTOBACILLUS/ACIDOPHILUS TAB PO SCH ×4 (10:46→21:20)
[2021-01-24] MEDS: ASPIRIN EC 81 MG TAB PO SCH (10:47)
[2021-01-24] MEDS: NEBIVOLOL HCL 5 MG TAB PO SCH (10:52)
--- NOTE | 2021-01-24 16:36 | P.PN ---
Date of Service: 01/24/21 Vital Signs Temp Pulse Resp BP Pulse Ox 97 F 64 16 110/56 L 97 01/24/21 12:00 01/24/21 12:00 01/24/21 12:00 01/24/21 12:00 01/24/21 12:00 Medications Acetaminophen (Acetaminophen 500 Mg Tab) 500 mg PO Q4HP PRN PRN Reason: TEMP > 101' F Ascorbic Acid (Ascorbic Acid 500 Mg Tablet) 500 mg PO DAILY [facility] Last Admin: 01/24/21 10:46 Dose: 500 mg Documented by: Aspirin (Aspirin Ec 81 Mg Tab) 81 mg PO DAILY [facility] Last Admin: 01/24/21 10:47 Dose: 81 mg Documented by: Atorvastatin Calcium (Atorvastatin 40 Mg Tab) 40 mg PO BEDTIME [facility] Last Admin: 01/23/21 22:21 Dose: 40 mg Documented by: Cholecalciferol (Vitamin D 1000 Unit Tab) 1,000 unit PO DAILY [facility] Last Admin: 01/24/21 10:45 Dose: 1,000 unit Documented by: Dicyclomine HCl (Dicyclomine Hcl 10 Mg Cap) 10 mg PO TID PRN PRN Reason: ABDOMINAL CRAMPS Last Admin: 01/24/21 10:46 Dose: 10 mg Documented by: Insulin Human Regular (Insulin -Regular Human 50 Unit/0.5 Ml Ml) 0 unit SQ [facility]; Protocol Last Admin: 01/24/21 11:30 Dose: Not Given Documented by: Lactobacillus Acidoph/Bulgaricus (Lactobacillus/Acidophilus Tab) 1 tab PO TID [facility] Last Admin: 01/24/21 13:31 Dose: 1 tab Documented by: Levothyroxine Sodium (Levothyroxine Sod 0.125 Mg Tab) [facility] Admin: 01/24/21 06:09 Dose: 0.125 mg Documented by: Loperamide HCl (Loperamide Hcl 2 Mg Capsule) 2 mg PO Q4H PRN PRN Reason: DIARRHEA Last Admin: 01/24/21 10:51 Dose: 2 mg Documented by: Nebivolol (Nebivolol Hcl 5 Mg Tab) 5 mg PO DAILY [facility] Last Admin: 01/24/21 10:52 Dose: 5 mg Documented by: Ondansetron HCl (Ondansetron 4 Mg/2 Ml Vial) 4 mg IV Q6HP PRN PRN Reason: NAUSEA / VOMITING Pantoprazole Sodium (Pantoprazole 40mg Tablet) 40 mg PO DAILYAC [facility]; Protocol Last Admin: 01/24/21 10:46 Dose: 40 mg Documented by: Sodium Bicarbonate (Sodium Bicarb 325 Mg Tab) 650 mg PO TID [facility] Last Admin: 01/24/21 13:35 Dose: 650 mg Documented by: Sodium Chloride (Flush Normal Saline 10 Ml) 10 ml IV BID [facility] Last Admin: 01/24/21 09:00 Dose: 10 ml Documented by: Assessment/ Plan: Nephrology No dyspnea No chest pain Persistent diarrhea. Reports a 27lb weight loss over the past three months. No acute events overnight Vitals, medications, blood work and imaging reviewed in the chart Physical Examination General: In no apparent distress, Oriented x3, Cooperative HEENT: Atraumatic Neck: Supple Respiratory: Clear to auscultation bilaterally Cardiovascular: No edema, Regular rate/rhythm Gastrointestinal: Soft and benign, Non-distended Musculoskeletal: No clubbing, No contractures Integumentary: No rashes, No cyanosis Neurological: Normal speech Laboratory Data (last 24 hrs) 01/23/21 07:22: WBC 4.20 L, Hgb 9.5 L, Hct 29.1 L, Plt Count 104 L 01/23/21 07:22: Sodium 142, Potassium 4.3, BUN 48 H, Creatinine 3.85 H D, Glucose 94, Total Bilirubin 0.9, AST 13 L, ALT 10 L, Alkaline Phosphatase 142 H, Lipase 532 H Imagings Data: EXAM DESCRIPTION: US - Renal Ultrasound-Complete - 01/23/2021 12:57 pm CLINICAL HISTORY: acute on chronic renal disease COMPARISON: ABDOMINAL EXAM COMPLETE dated 05/06/2015; Liver Only dated 01/23/2021 FINDINGS: The right kidney measures 11.7 x 5.2 x 4.8 cm. The left kidney measures 11.5 x 5.3 x 4.1 cm. Renal cortical thickness are normal. Echogenicity is increased slightly probably from underlying medical renal disease. No hydronephrosis or suspicious renal mass. Bladder was not adequately visualized IMPRESSION: No hydronephrosis or suspicious renal mass. Probable underlying medical renal disease. EXAM DESCRIPTION: US - Liver Only - 01/23/2021 12:49 pm CLINICAL HISTORY: alcohol liver cirrhosis COMPARISON: No comparisons TECHNIQUE: Sonographic evaluation of the right upper quadrant was performed as a dedicated liver ultrasound study. FINDINGS: Liver shows a coarsened echogenicity to the parenchyma. There is macro lobulation of the capsule. No focal lesion of the liver parenchyma identifiable. Doppler evaluation shows normal velocity and flow direction of the portal vein. Small to moderate amount of ascites is present adjacent to the liver and spleen. The spleen is 17 cm in maximum dimension. IMPRESSION: Small liver with advanced cirrhotic liver changes. No focal liver parenchymal lesion identified. Splenomegaly with no focal splenic abnormality. No portal vein abnormality. Small to moderate amount of ascites present, not fully evaluated. Conclusions/Impression: ESTEVAN likely hypovolemia CKD III -No NSAIDs -Continue IVF Acidosis -Increase oral bicarb DM II with CKD -RISS -Hold Metformin Moderate malnutrition -Renal diet Anemia in chronic illness Pancytopenia -Monitor H&H Liver cirrhosis Splenomegaly -Monitor LFT -Hepatitis panel pending Case reviewed with Dr. Prasad
[2021-01-24] MEDS: METRONIDAZOLE 500mg IVPB 500 MG/100 ML BAG IV SCH (17:16)
[2021-01-24] MEDS: CHOLESTYRAMINE/ASP 4 GM/PKT PO SCH (17:16)
[2021-01-24] MEDS: Rifaximin 550 MG Tab PO SCH (17:21)
[2021-01-24] MEDS ORDERED: SODIUM BICARB 325 MG TAB PO SCH (21:00)
[2021-01-24] MEDS: ATORVASTATIN 40 MG TAB PO SCH (21:14)
--- NOTE | 2021-01-24 21:57 | CON ---
Date of Consultation: 01/24/2021 Reason For Consultation: Chronic diarrhea and liver cirrhosis. History Of Present Illness: The patient is a 65-year-old white male with history of end-stage liver disease, cirrhosis, diabetes, and chronic kidney disease. The patient presents to hospital with hypo glycemia, continues to have hypoglycemic events, trying to adjust his diabetic medications at this ti tn. He has a history of alcoholic cirrhosis, anemia of chronic disease, and hypertension. He contin ues to have diarrhea. He says he has had diarrhea over the past 3 months. His primary care physicia n diagnosed a bacteria in his stool and put him on Flagyl 1 week ago as per his recollection, however , by chart review, it appears that there is no record of a stool diagnosis for diarrhea being made an d seems somewhat questionable at this point as per physicians taking care in the hospital. The patie nt states it has been a while since he has had an EGD. He does not think his stool is extremely foul smelling, but he can't recollect well. Past Medical History: Significant for diabetes, hypertension, alcoholic cirrhosis, chronic renal ins ufficiency, anemia of chronic disease, thrombocytopenia likely related to liver disease, seasonal all ergies, gastric reflux disease, and alcohol abuse, which he quit in last month along with the dip in tobacco use reports. Medications: See list in hospital. Allergies: NKDA. Social History: He is , 4 children. No tobacco. No alcohol. He quit tobacco, which was dip ping and the alcohol in December 2020, approximately 3-4 weeks ago. Family History: His father of asbestosis lung disease. Mother of coronary artery disease and myocardial infarction. Review of Systems: The patient has chronic diarrhea, some lethargy. Denies any melena, hematochezia, hematemesis, coffe e-ground emesis, hematuria, dysuria, polydipsia, chest pain, shortness of breath, seizures, or syncop e. Does have lower extremity edema, that is mild in one leg, which was broken he states and gastric reflux disease. He has no allergies. Low platelets due to his liver disease. No joint pains or chaya kaches. No depression or anxiety noted. Physical Examination: Vital Signs: The patient is 6 feet 3 inches, 200 pounds, BMI of 25 kg/m2. Temperature of 97 degrees Fahrenheit, pulse 64, respirations 16, blood pressure 110/56, O2 saturation 97% to 99% on room air. General: He is a well-developed male, lying in bed, in no acute distress. HEENT: Normocephalic, atraumatic. Anicteric. Pupils equal, round, and reactive to light. Extraocu lar movements are intact. Oropharynx is clear. Neck: Supple. No masses. Respirations: Clear to auscultation bilaterally. Cardiac: Regular rate and rhythm. No gallops or rubs. Gastrointestinal: Positive bowel sounds. Soft and nondistended. No hepatosplenomegaly. Some mild obesity. Questionable dullness in the flanks. Extremities: No clubbing or cyanosis, but some mild edema, left greater than right. Laboratory Data: The patient has a white count of 3.6, hemoglobin 9.3, hematocrit 28, MCV of 108, an d platelet count 94, down from 104 yesterday. Polys of 73%, lymphocytes 10%, monocytes 12%, eosinoph ils 4%. Sodium 140, potassium 4.8, chloride 117, bicarb 14, BUN of 51, creatinine of 3.44, glucose 1 70. Hemoglobin A1c 5.1, which is very good. Uric acid 9.9, calcium 8.4, phosphorus 3.6, magnesium 2 .0. Total bilirubin 1.0, AST 11, ALT of 11, alkaline phosphatase 129, total protein 6.5, albumin 2.0 , globulin 4.5. Triglycerides 55, cholesterol less than 50, LDL 19, HDL of 20. B12 of 894, folate o f 19.7. TSH is 1.83, free T4 of 1.3. UA, trace ketones, positive nitrite, 5-10 white blood cells, 5 -10 squamous epithelials . Urine tox screen was negative. C. diff is pending. Hepatitis A, B, and C, pending. COVID-19 testing was negative. Liver ultrasound revealed splenomeg noel, small liver with advanced cirrhotic changes. No portal vein abnormalities, small to moderate am ount of ascites present, not fully evaluated. Impression: 1.Chronic diarrhea 3 months, possibly diagnosed by PCP as an outpatient, however, this cannot be nina ified by physicians in-house and to repeat stool studies. We will start Flagyl empirically because anahi nielson said that is what he was as an outpatient. 2.Liver cirrhosis secondary to alcohol with small to moderate amount of ascites, would need probable diuretic therapy, either as inpatient or started as outpatient. 3.History of diabetes, hypertension, chronic kidney disease, cirrhosis secondary to alcohol abuse. Also history of tobacco abuse in the past, however, he quit both of these in December, last month. Ga stric reflux disease and thrombocytopenia secondary to liver disease. Recommendation: 1.Check stool studies. 2.Start Questran 2 packets b.i.d. 3.IV Flagyl. 4.Get recent diagnosis of stool from PCP. 5.Consider p.o. vancomycin if needed. 6.Lactinex. 7.Xifaxan. 8.Diuretic therapy when the patient is able to tolerate. DILSHAD/MADI Voice ID: [id number] Report ID: [id number]
[2021-01-24 23:12] LABS: Urine Appearance CLEAR (Clear); Urine Bilirubin NEGATIVE (Negative); Urine Blood NEGATIVE (Negative); Urine Color DK YELLOW (Yellow); Urine Glucose NEGATIVE (Negative); Urine Protein NEGATIVE (Negative); Urine Specific Gravity 1.015 (1.005-1.030); Urine Urobilinogen 0.2 mg/dL (0.2-1.0)
[2021-01-24 23:45] LABS: Urine Bacteria <20 /HPF (NONE SEEN); Urine RBC NONE SEEN /HPF (NONE SEEN)
[2021-01-25] MEDS: METRONIDAZOLE 500mg IVPB 500 MG/100 ML BAG IV SCH ×2 (01:37→10:01)
[2021-01-25 05:47] LABS: Absolute Lymphocytes (CBC) 0.5 K/uL (0.7-4.9); Basophils % 0.8 % (0-1.3); Hematocrit 27.6 % (39.6-49.0); Lymphocytes % 10.8 % (15.3-44.8); MPV 8.7 fL (7.6-11.3); RBC Red Blood Cell Count 2.54 M/uL (4.33-5.43)
--- NOTE | 2021-01-25 05:50 | P.PN ---
Subjective Date of Service: 01/25/21 Primary Care Provider: Ilsa Villar NP; Nephrology-Dr. Velazquez; GI-Dr. Araya Chief Complaint: Hypoglycemia Subjective: Improving, Doing well Physical Examination - Vital Signs Temperature: 98.6 F Blood Pressure: 110/55 Pulse: 72 Respirations: 18 Pulse Ox (%): 99 Assessment & Plan Discharge Plan: Home Plan to discharge in: 24 Hours Physician Review Additional Text: COVID: Negative Liver US: COMPARISON: No comparisons TECHNIQUE: Sonographic evaluation of the right upper quadrant was performed as a dedicated liver ultrasound study. FINDINGS: Liver shows a coarsened echogenicity to the parenchyma. There is macro lobulation of the capsule. No focal lesion of the liver parenchyma identifiable. Doppler evaluation shows normal velocity and flow direction of the portal vein. Small to moderate amount of ascites is present adjacent to the liver and spleen. The spleen is 17 cm in maximum dimension. IMPRESSION: Small liver with advanced cirrhotic liver changes. No focal liver parenchymal lesion identified. Splenomegaly with no focal splenic abnormality. No portal vein abnormality. Small to moderate amount of ascites present, not fully evaluated. Renal US: COMPARISON: ABDOMINAL EXAM COMPLETE dated 05/06/2015; Liver Only dated 01/23/2021 FINDINGS: The right kidney measures 11.7 x 5.2 x 4.8 cm. The left kidney measures 11.5 x 5.3 x 4.1 cm. Renal cortical thickness are normal. Echogenicity is increased slightly probably from underlying medical renal disease. No hydronephrosis or suspicious renal mass. Bladder was not adequately visualized IMPRESSION: No hydronephrosis or suspicious renal mass. Probable underlying medical renal disease. Physical Exam: GENERAL: The patient is a well-developed, well-nourished, in no apparent distress. Alert and oriented x3. VITAL SIGNS: Reviewed HEENT: Neck supple LUNGS: Clear to auscultation. No crackles or wheezes are heard. HEART: Regular rate and rhythm, no appreciable gallops, rubs, murmurs or extra heart sounds ABDOMEN: Patient with some ascites. EXTREMITIES: Without any cyanosis, clubbing, rash, lesions or peripheral edema. NEUROLOGIC: The patient is oriented to person, place and time. Strength and sensation are grossly intact. Face is symmetric. SKIN: No significant edema to the lower extremities. 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 Patient remains off glimepiride, metformin and Levemir. A1c 5.1. Blood sugar 84 this morning. We will continue to monitor off medication. Patient will likely not require any medication at discharge. Continue oral bicarbonate. Case discussed with GI yesterday. Patient will need close follow- up with GI as an outpatient. Patient may be a candidate for liver transplant in the future. Will discuss with nephrology today. If blood sugar stable will consider discharge as early as today if not tomorrow. Acute on chronic renal disease stage IV with metabolic acidosis: Patient remains on bicarbonate. Patient taking good oral intake. Renal ultrasound shows medical renal disease. Will discuss with nephrology. Consider discharge as early as today if not tomorrow. Await recommendations from nephrology. Alcoholic liver cirrhosis: Patient with prior liver ultrasound in 2016 showed cirrhosis. Liver ultrasound shows small liver with advanced cirrhotic changes. Patient will need close follow-up with GI as an outpatient to further address. Patient may be a candidate for liver transplant in the future. Chronic diarrhea: Patient without diarrhea. Stool cultures pending. Continue lactobacillus. C. difficile culture pending. Hypertension: Lisinopril hydrochlorothiazide has been discontinued due to his renal disease. Will decrease Bystolic with parameters in place. Will monitor and adjust medication appropriately. Anemia of chronic disease : This is likely of chronic disease related to his liver and kidney disease. Will monitor closely. Maintain hemoglobin above 7.5. Patient has been seen by hematology recently. Chronic thrombocytopenia likely related to liver disease: This is likely related to his liver disease. Hypothyroidism: Medication recently adjusted by PCP. Continue with levothyroxine 125 mcg daily. Will check TSH and free T4. GERD: Continue Protonix. Code Status: Full Code DVT prophylaxis: SCDs Advanced Care Planning-30 minutes: Home at discharge Time Spent Managing Pts Care (In Minutes): 55
[2021-01-25] MEDS: LEVOTHYROXINE SOD 0.125 MG TAB PO SCH (05:53)
[2021-01-25 06:16] LABS: Bilirubin Total 0.9 mg/dL (0.2-1.0); Magnesium 2.1 mg/dL (1.8-2.4); Potassium 4.8 mmol/L (3.5-5.1); Protein, Total 6.3 g/dL (6.4-8.2); Uric Acid 10.3 mg/dL (3.5-7.2)
[2021-01-25 07:05] LABS: Anisocytosis 1+; Blood Morphology Comment NOTED (NOT SEEN); Platelet Estimate DECR; White Blood Cell Scan OK (OK)
[2021-01-25 07:06] LABS: Macrocytosis 2+
[2021-01-25] MEDS: INSULIN -REGULAR HUMAN 50 UNIT/0.5 ML ML SQ SCH ×2 (07:30→11:30)
[2021-01-25] MEDS: CHOLESTYRAMINE/ASP 4 GM/PKT PO SCH (08:06)
[2021-01-25] MEDS: NEBIVOLOL HCL 5 MG TAB PO SCH (09:00)
[2021-01-25] MEDS: Rifaximin 550 MG Tab PO SCH (09:57)
[2021-01-25] MEDS: LACTOBACILLUS/ACIDOPHILUS TAB PO SCH ×2 (09:59→13:37)
[2021-01-25] MEDS: ASCORBIC ACID 500 MG TABLET PO SCH (10:00)
[2021-01-25] MEDS: ASPIRIN EC 81 MG TAB PO SCH (10:00)
[2021-01-25] MEDS: VITAMIN D 1000 UNIT TAB PO SCH (10:00)
[2021-01-25] MEDS: SODIUM BICARB 325 MG TAB PO SCH ×2 (10:01→13:37)
[2021-01-25 12:12] VITALS: BP 109/59; TEMP 97.7
--- NOTE | 2021-01-25 13:40 | P.DS ---
Admission Date: 01/23/21 Discharge Date: 01/25/21 Primary Care Provider: Ilsa Villar NP; Nephrology-Dr. Velazquez; GI-Dr. Araya Disposition: ROUTINE DISCHARGE Discharge Condition: GOOD Reason for Admission: Hypoglycemia Consultations: Nephrology-Dr. Marcus Guidry Procedures: COVID: Negative Liver US: COMPARISON: No comparisons TECHNIQUE: Sonographic evaluation of the right upper quadrant was performed as a dedicated liver ultrasound study. FINDINGS: Liver shows a coarsened echogenicity to the parenchyma. There is macr o lobulation of the capsule. No focal lesion of the liver parenchyma identifiable. Doppler evaluation shows normal velocity and flow direction of the portal vein. Small to moderate amount of ascites is present adjacent to the liver and spleen. The spleen is 17 cm in maximum dimension. IMPRESSION: Small liver with advanced cirrhotic liver changes. No focal liver parenchymal lesion identified. Splenomegaly with no focal splenic abnormality. No portal vein abnormality. Small to moderate amount of ascites present, not fully evaluated. Renal US: COMPARISON: ABDOMINAL EXAM COMPLETE dated 05/06/2015; Liver Only dated 01/23/2021 FINDINGS: The right kidney measures 11.7 x 5.2 x 4.8 cm. The left kidney measures 11.5 x 5.3 x 4.1 cm. Renal cortical thickness are normal. Echogenicity is increased slightly probably from underlying medical renal disease. No hydronephrosis or suspicious renal mass. Bladder was not adequately visualized IMPRESSION: No hydronephrosis or suspicious renal mass. Probable underlying medical renal disease. Medical Problem List: Hypoglycemia with diabetes mellitus type 2 insulin-dependent Acute on chronic renal disease stage IV with metabolic acidosis Alcoholic liver cirrhosis Chronic diarrhea Hypertension Anemia of chronic disease Chronic thrombocytopenia likely related to liver disease Hypothyroidism GERD Time Spent Managing Pts Care (In Minutes): 55 Brief History of Present Illness: 65-year-old male with history of chronic renal disease, diabetes mellitus type 2, hypertension, alcoholic cirrhosis and anemia of chronic disease. Patient presented to the emergency room with low blood sugar. He was found to have blood sugar low 50. He also reports that EMS was in his house yesterday for low blood sugar. He denied any significant chest pain, shortness of breath. He does report of chronic diarrhea. His medications have been recently adjusted. Patient takes glimepiride, Metformin and Lantus. He came to the ER for further evaluation. Patient found to have hypoglycemia. Initial blood sugar 58. White count 4.2, hemoglobin 9.5. Platelet count 104. Sodium 142, potassium 4.3. BUN 48, creatinine 3.85 with a GFR of 16. Bicarb is 14. Lipase 532. AST ALT reviewed. Covid test negative. Patient was started on IV fluids. Patient admitted for further evaluation and treatment. When saw the patient in ER, patient reports that his diarrhea has been chronic over the past 3 months. Patient seen by GI in the past with prior liver ultrasound showing liver cirrhosis in 2016. Patient reports that his medications have been recently adjusted by PCP for his blood sugar. Thyroid medication also recently adjusted. Patient also takes blood pressure medication as well. Patient recently seen by hematology for his anemia and thrombocytopenia. Hospital Course: Patient presented with hypoglycemia. Patient with underlying diabetes mellitus type 2 insulin-dependent, chronic renal disease, alcoholic liver cirrhosis, hypertension, anemia of chronic disease, hypothyroidism, and chronic thrombocytopenia related to liver disease. Patient had been taking glimepiride 2 mg 1 pill twice daily, Metformin 500 mg 1 pill twice daily, and Levemir 34 units daily. All medications were discontinued. Patient required IV fluids. The patient has done well off medication. Patient was seen and evaluated by GI and nephrology due to acute on chronic renal disease stage IV with metabolic acidosis and because of his alcoholic liver cirrhosis. For his diabetes patient is eating well. Blood sugar maintain off medication. Hemoglobin A1c 5.1. At discharge glimepiride, metformin and Levemir have been discontinued. Recommend to continue mild NovoLog sliding scale. He is to check his blood sugars at least twice daily. He is to use the sliding scale as directed. If blood sugars remain above 200 then Levemir may need to be restarted at 5 to 10 units daily. This can be done with the help of his PCP. Recommend to maintain blood sugar less than 140 fasting and less than 200 after meals. Recommend recheck hemoglobin A1c every 3 months to monitor his progress. Recommend follow-up with PCP within 1 week to further address and monitor his diabetes. For his acute on chronic renal disease stage IV, patient found to have metabolic acidosis. Patient received IV fluids with sodium bicarbonate. Patient seen and evaluated by nephrology. Renal ultrasound shows medical renal disease. At discharge renal function slightly improved. At discharge patient will continue with sodium bicarbonate 650 mg 1 pill twice daily. Recommend to recheck labBMP within 1 week. Recommend no further use of nonsteroidal anti-inflammatories. Future medications will to be renally dosed. Please note that aspirin, glimepiride, Metformin, Levemir, gabapentin, lisinopril hydrochlorothiazide, gabapentin, Topamax, and fish oil have been been discontinued. Patient with advanced alcoholic liver cirrhosis. Patient no longer drinks. Liver ultrasound shows small liver with advanced cirrhotic changes. Patient seen and evaluated by GI. Patient had reported chronic diarrhea. This was likely related to Metformin. Metformin has been discontinued. Patient without diarrhea at discharge. Stool cultures obtained including C. difficile. These will need to be followed up by PCP. No need for antibiotics or medication at this time. Patient may continue with lactobacillus 3 times a day. A limited supply of Bentyl 10 mg 1 pill 3 times a day as needed for abdominal cramps will be provided. Recommend follow-up with GI in 1 to 2 weeks to follow-up hospitalization. GI will plan to refer patient to instrumental musician to further evaluate his liver cirrhosis. Patient may be a candidate for transplant in the future. Patient with hypertension. Patient previously on lisinopril hydrochlorothia zide. This was discontinued due to his renal disease. Patient remains on Bystolic. At discharge patient will continue with Bystolic 2.5 mg daily. Recommend to maintain blood pressure less than 130/80. Recommend to hold blood pressure medication if blood pressure systolic less than 110. Recommend follow- up with PCP to further monitor and adjust medication. Patient with anemia of chronic disease and noted chronic thrombocytopenia likely related to liver disease. At discharge hemoglobin stable. Patient has seen hematology. Maintain hemoglobin above 7.5. Patient may follow-up with hemat ology to further address. Recommend to recheck labCBC in 1 to 2 weeks to monitor his progress. Patient with hypothyroidism. Overall stable. At discharge patient will continue with levothyroxine 125 mcg daily. Patient with GERD. At discharge patient will continue with Protonix 40 mg daily. Patient with hyperlipidemia. At discharge patient will continue with Lipitor 40 mg daily. Vital Signs/Physical Exam: Temp Pulse Resp BP Pulse Ox 97.7 F 64 18 109/59 L 96 01/25/21 12:00 01/25/21 12:00 01/25/21 12:00 01/25/21 12:00 01/25/21 12:00 General: Alert, In no apparent distress, Oriented x3, Cooperative HEENT: Atraumatic Neck: Supple Respiratory: Clear to auscultation bilaterally, Normal air movement Cardiovascular: Normal pulses, Regular rate/rhythm Gastrointestinal: Normal bowel sounds, Other (mild ascites) Musculoskeletal: No erythema, No tenderness, No warmth Integumentary: No tenderness/swelling, No erythema, No warmth, No cyanosis Neurological: Normal speech, Normal strength at 5/5 x4 extr, Normal tone, Normal affect Laboratory Data at Discharge: WBC 4.70 K/uL (4.3-10.9) D 01/25/21 05:19 Hgb 9.1 g/dL (13.6-17.9) L 01/25/21 05:19 Hct 27.6 % (39.6-49.0) L 01/25/21 05:19 Plt Count 93 K/uL (152-406) L 01/25/21 05:19 Sodium 144 mmol/L (136-145) 01/25/21 05:19 Potassium 4.8 mmol/L (3.5-5.1) 01/25/21 05:19 BUN 46 mg/dL (7-18) H 01/25/21 05:19 Creatinine 3.41 mg/dL (0.55-1.3) H 01/25/21 05:19 Glucose 122 mg/dL (74-106) H 01/25/21 05:19 Uric Acid 10.3 mg/dL (3.5-7.2) H 01/25/21 05:19 Phosphorus 3.6 mg/dL (2.5-4.9) 01/24/21 05:32 Magnesium 2.1 mg/dL (1.8-2.4) 01/25/21 05:19 Total Bilirubin 0.9 mg/dL (0.2-1.0) 01/25/21 05:19 AST 14 U/L (15-37) L 01/25/21 05:19 ALT 12 U/L (12-78) 01/25/21 05:19 Alkaline Phosphatase 120 U/L (45-117) H 01/25/21 05:19 Triglycerides 55 mg/dL (<150) 01/24/21 05:32 Cholesterol < 50 mg/dL (<200) 01/24/21 05:32 HDL Cholesterol 20 mg/dL (40-60) L 01/24/21 05:32 Cholesterol/HDL Ratio 2.50 01/24/21 05:32 Lipase 532 U/L (73-393) H 01/23/21 07:22 Home Medications: Atorvastatin Calcium 1 tab PO DAILY 01/23/21 Cholecalciferol (Vitamin D3) [Vitamin D3] 1 tab PO DAILY 01/23/21 Levothyroxine [Synthroid*] 1 tab PO DAILY 01/23/21 Ascorbic Acid [Vitamin C*] 500 mg PO DAILY #30 tablet 01/25/21 Cholecalciferol (Vitamin D3) [Vitamin D 1000 Iu Tab*] 1,000 unit PO DAILY #30 tab 01/25/21 Dicyclomine [Bentyl*] 10 mg PO TID PRN #15 cap 01/25/21 Insulin Regular, Human [Novolin R Flexpen] See Protocol SQ SEECOM #1 insuln.pen 01/25/21 Lactobacillus Acidophilus [Acidophilus Lactobacilli] 1 each PO TID #30 capsule 01/25/21 Na Bicarb Tab [Sodium Bicarb 325 MG Tab*] 650 mg PO BID #120 tab 01/25/21 Nebivolol HCl [Bystolic] 1 tab PO DAILY #30 01/25/21 Pantoprazole Sodium 1 tab PO DAILY #30 01/25/21 New Medications: Lactobacillus Acidophilus [Acidophilus Lactobacilli] 1 each PO TID #30 capsule Dicyclomine [Bentyl*] 10 mg PO TID PRN #15 cap PRN Reason: Abdominal Cramps Nebivolol HCl [Bystolic] 1 tab PO DAILY #30 Insulin Regular, Human [Novolin R Flexpen] See Protocol SQ SEECOM #1 insuln.pen Pantoprazole Sodium 1 tab PO DAILY #30 Na Bicarb Tab [Sodium Bicarb 325 MG Tab*] 650 mg PO BID #120 tab Ascorbic Acid [Vitamin C*] 500 mg PO DAILY #30 tablet Cholecalciferol (Vitamin D3) [Vitamin D 1000 Iu Tab*] 1,000 unit PO DAILY #30 tab Physician Discharge Instructions: Patient presented with hypoglycemia. Patient with underlying diabetes mellitus type 2 insulin-dependent, chronic renal disease, alcoholic liver cirrhosis, hypertension, anemia of chronic disease, hypothyroidism, and chronic thrombocytopenia related to liver disease. Patient had been taking glimepiride 2 mg 1 pill twice daily, Metformin 500 mg 1 pill twice daily, and Levemir 34 units daily. All medications were discontinued. Patient required IV fluids. The patient has done well off medication. Patient was seen and evaluated by GI and nephrology due to acute on chronic renal disease stage IV with metabolic acidosis and because of his alcoholic liver cirrhosis. For his diabetes patient is eating well. Blood sugar maintain off medication. Hemoglobin A1c 5.1. At discharge glimepiride, metformin and Levemir have been discontinued. Recommend to continue mild NovoLog sliding scale. He is to check his blood sugars at least twice daily. He is to use the sliding scale as directed. If blood sugars remain above 200 then Levemir may need to be restarted at 5 to 10 units daily. This can be done with the help of his PCP. Recommend to maintain blood sugar less than 140 fasting and less than 200 after meals. Recommend recheck hemoglobin A1c every 3 months to monitor his progress. Recommend follow-up with PCP within 1 week to further address and monitor his diabetes. For his acute on chronic renal disease stage IV, patient found to have metabolic acidosis. Patient received IV fluids with sodium bicarbonate. Patient seen and evaluated by nephrology. Renal ultrasound shows medical renal disease. At discharge renal function slightly improved. At discharge patient will continue with sodium bicarbonate 650 mg 1 pill twice daily. Recommend to recheck labBMP within 1 week. Recommend no further use of nonsteroidal anti-inflammatories. Future medications will to be renally dosed. Please note that aspirin, glimepiride, Metformin, Levemir, gabapentin, lisinopril hydrochlorothiazide, gabapentin, Topamax, and fish oil have been been discontinued. Patient with advanced alcoholic liver cirrhosis. Patient no longer drinks. Liver ultrasound shows small liver with advanced cirrhotic changes. Patient seen and evaluated by GI. Patient had reported chronic diarrhea. This was likely related to Metformin. Metformin has been discontinued. Patient without diarrhea at discharge. Stool cultures obtained including C. difficile. These will need to be followed up by PCP. No need for antibiotics or medication at this time. Patient may continue with lactobacillus 3 times a day. A limited supply of Bentyl 10 mg 1 pill 3 times a day as needed for abdominal cramps will be provided. Recommend follow-up with GI in 1 to 2 weeks to follow-up hospitalization. GI will plan to refer patient to instrumental musician to further evaluate his liver cirrhosis. Patient may be a candidate for transplant in the future. Patient with hypertension. Patient previously on lisinopril hydrochlorothiazide. This was discontinued due to his renal disease. Patient remains on Bystolic. At discharge patient will continue with Bystolic 2.5 mg daily. Recommend to maintain blood pressure less than 130/80. Recommend to hold blood pressure medication if blood pressure systolic less than 110. Recommend follow-up with PCP to further monitor and adjust medication. Patient with anemia of chronic disease and noted chronic thrombocytopenia likely related to liver disease. At discharge hemoglobin stable. Patient has seen hematology. Maintain hemoglobin above 7.5. Patient may follow-up with hematology to further address. Recommend to recheck labCBC in 1 to 2 weeks to monitor his progress. Patient with hypothyroidism. Overall stable. At discharge patient will continue with levothyroxine 125 mcg daily. Patient with GERD. At discharge patient will continue with Protonix 40 mg daily. Patient with hyperlipidemia. At discharge patient will continue with Lipitor 40 mg daily. Diet: ADA Activity: Fall precautions Followup: Lori Villar NP [Primary Care Provider] - Time spent managing pt's care (in minutes): 55
[2021-01-25 14:55] VITALS: O2SAT 94
--- NOTE | 2021-01-25 21:03 | P.PN ---
Date of Service: 01/25/21 Vital Signs Temp Pulse Resp BP Pulse Ox 97.7 F 64 18 109/59 L 96 01/25/21 12:00 01/25/21 12:00 01/25/21 12:00 01/25/21 12:00 01/25/21 12:00 Assessment/ Plan: Nephrology No dyspnea No chest pain Diarrhea improved. Reports a 27lb weight loss over the past three months. No acute events overnight Vitals, medications, blood work and imaging reviewed in the chart Physical Examination General: In no apparent distress, Oriented x3, Cooperative HEENT: Atraumatic Neck: Supple Respiratory: Clear to auscultation bilaterally Cardiovascular: No edema, Regular rate/rhythm Gastrointestinal: Soft and benign, Non-distended Musculoskeletal: No clubbing, No contractures Integumentary: No rashes, No cyanosis Neurological: Normal speech Laboratory Data (last 24 hrs) 01/23/21 07:22: WBC 4.20 L, Hgb 9.5 L, Hct 29.1 L, Plt Count 104 L 01/23/21 07:22: Sodium 142, Potassium 4.3, BUN 48 H, Creatinine 3.85 H D, Glucose 94, Total Bilirubin 0.9, AST 13 L, ALT 10 L, Alkaline Phosphatase 142 H, Lipase 532 H Imagings Data: EXAM DESCRIPTION: US - Renal Ultrasound-Complete - 01/23/2021 12:57 pm CLINICAL HISTORY: acute on chronic renal disease COMPARISON: ABDOMINAL EXAM COMPLETE dated 05/06/2015; Liver Only dated 01/23/2021 FINDINGS: The right kidney measures 11.7 x 5.2 x 4.8 cm. The left kidney measures 11.5 x 5.3 x 4.1 cm. Renal cortical thickness are normal. Echogenicity is increased slightly probably from underlying medical renal disease. No hydronephrosis or suspicious renal mass. Bladder was not adequately visualized IMPRESSION: No hydronephrosis or suspicious renal mass. Probable underlying medical renal disease. EXAM DESCRIPTION: US - Liver Only - 01/23/2021 12:49 pm CLINICAL HISTORY: alcohol liver cirrhosis COMPARISON: No comparisons TECHNIQUE: Sonographic evaluation of the right upper quadrant was performed as a dedicated liver ultrasound study. FINDINGS: Liver shows a coarsened echogenicity to the parenchyma. There is macro lobulation of the capsule. No focal lesion of the liver parenchyma identifiable. Doppler evaluation shows normal velocity and flow direction of the portal vein. Small to moderate amount of ascites is present adjacent to the liver and spleen. The spleen is 17 cm in maximum dimension. IMPRESSION: Small liver with advanced cirrhotic liver changes. No focal liver parenchymal lesion identified. Splenomegaly with no focal splenic abnormality. No portal vein abnormality. Small to moderate amount of ascites present, not fully evaluated. Conclusions/Impression: ESTEVAN likely hypovolemia CKD III -No NSAIDs -Continue IVF Acidosis -Continue oral bicarb DM II with CKD -RISS -Hold Metformin Moderate malnutrition -Renal diet Anemia in chronic illness Pancytopenia -Monitor H&H Liver cirrhosis Splenomegaly -Monitor LFT -Hepatitis panel pending Case reviewed with Dr. Prasad Case reviewed with the patient and his Recommend a nephrology follow up in 2 weeks
[2021-01-26] MEDS ORDERED: NEBIVOLOL HCL 5 MG TAB PO SCH (09:00)
[2021-01-26 09:44] LABS: C.diff Antigen/Toxin Ag neg : Tox neg (NEG : NEG)
--- NOTE | 2021-01-27 07:48 | ECHO ---
HEIGHT: 6 ft 3 in WEIGHT: 200 lb 0 oz DATE OF STUDY: 01/24/[address]: Moreno Prasad DO 2-DIMENSIONAL: YES M.MODE: YES DOPPLER: YES COLOR FLOW: YES TDS: NO PORTABLE: NO DEFINITY: NO BUBBLE STUDY: NO DIAGNOSIS: SHORTNESS OF BREATH, CHRONIC RENAL DISEASE, DIABETES MELLITUS, HYPERTESION, LIVER CIRRHOSIS CARDIAC HISTORY: CATHERIZATION: NO SURGERY: NO PROSTHETIC VALVE: NO PACEMAKER: NO MEASUREMENTS (cm) DIASTOLIC (NORMALS) SYSTOLIC (NORMALS) IVSd 1.0 (0.6-1.2) LA Diam 4.3 (1.9-4.0) LVEF 68% LVIDd 4.8 (3.5-5.7) LVIDs 3.0 (2.0-3.5) %FS 38% LVPWd 1.1 (0.6-1.2) Ao Diam (2.0-3.7) 2 DIMENSIONAL ASSESSMENT: RIGHT ATRIUM: DILATED LEFT ATRIUM: DILATED RIGHT VENTRICLE: NORMAL LEFT VENTRICLE: NORMAL TRICUSPID VALVE: NORMAL MITRAL VALVE: MITRAL ANNULAR CALCIFICATION PULMONIC VALVE: NORMAL AORTIC VALVE: NORMAL PERICARDIAL EFFUSION: NONE AORTIC ROOT: NORMAL LEFT VENTRICULAR WALL MOTION: NORMAL DOPPLER/COLOR FLOW: NORMAL COMMENTS: NORMAL RIGHT VENTRICULAR SYSTOLIC PRESSURE. LEFT AND RIGHT ATRIAL ENLARGEMENT. NORMAL LEFT VENTRICULAR SIZE AND FUNCTION. NORMAL LEFT VENTRICULAR EJECTION FRACTION. NO EFFUSION. MITRAL ANNULAR CALCIFICATION. TECHNOLOGIST: Mary Jo RAHMAN
[2021-01-27 14:26] LABS: HIV AG/AB 4TH GEN Non-reactive (Non-reactive)
[2021-01-28 02:47] LABS: HBsAG Nonreactive (Nonreactive)
== END 2021-01-25 15:08 | disposition home or self-care (01) | DRG 638 ==
LOC: ER 07:02 → ERHOLD 10:40 → 2ND 11:18
PROVIDERS: ADMIT Family Medicine; ATTEND Family Medicine
DX: E11.649 Type 2 diabetes mellitus with hypoglycemia without coma (principal); E87.2 Acidosis; E44.0 Moderate protein-calorie malnutrition; Z68.1 Body mass index [BMI] 19.9 or less, adult; D61.818 Other pancytopenia; K70.31 Alcoholic cirrhosis of liver with ascites; N17.9 Acute kidney failure, unspecified; E78.5 Hyperlipidemia, unspecified; K52.9 Noninfective gastroenteritis and colitis, unspecified; K21.9 Gastro-esophageal reflux disease without esophagitis; I12.9 Hypertensive chronic kidney disease with stage 1 through stage 4 chronic kidney disease, or unspecified chronic kidney disease; N18.4 Chronic kidney disease, stage 4 (severe); E11.22 Type 2 diabetes mellitus with diabetic chronic kidney disease; E03.9 Hypothyroidism, unspecified; R16.1 Splenomegaly, not elsewhere classified; Z79.84 Long term (current) use of oral hypoglycemic drugs; Z79.890 Hormone replacement therapy; Z79.82 Long term (current) use of aspirin; Z79.899 Other long term (current) drug therapy; Z79.4 Long term (current) use of insulin; Z20.822 Contact with and (suspected) exposure to COVID-19
CPT/HCPCS: 36415; 76705; 76770; 80048; 80053; 80061; 80074; 80076; 80307; 80320; 81001; 81003; 81015; 82570; 82607; 82705; 82746; 82947; 83036; 83631; 83690; 83735; 84100; 84300; 84439; 84443; 84550; 85025; 87040; 87045; 87046; 87086; 87088; 87177; 87209; 87324; 87389; 87449; 93306; 96365; 96375; 97116; 97161; 99285; J7042; U0003

== ENCOUNTER 2021-03-03 07:31 | Day surgery (SDC) | payer OTHER ==
[2021-03-03 08:22] VITALS: BMI 28.3
[2021-03-03 08:34] LABS: MPV 8.2 fL (7.6-11.3)
[2021-03-03 08:48] LABS: Protime INR 1.46
--- NOTE | 2021-03-03 10:30 | RAD REPORT ---
EXAM DESCRIPTION: US - Paracentesis Proc Guidance - 03/03/2021 9:41 am CLINICAL HISTORY: ASCITES Ascites COMPARISON: Liver Only dated 02/19/2021 FINDINGS: Informed consent was obtained and time-out was performed. Patient's abdomen was prepped and draped in the usual sterile fashion. 1% lidocaine was used for loca l anesthetic purposes. A small skin incision was made. A paracentesis catheter was guided into the peroneal cavity under son ographic guidance. A small amount of fluid was sent for requested lab studies. A large volume paracentesis was performed . The patient tolerated the procedure well. Patient was administered IV albumin per protocol following the procedure. IMPRESSION: Successful ultrasound-guided paracentesis.
[2021-03-03 12:38] VITALS: BP 104/46; TEMP 97.7; O2SAT 96
[2021-03-03 18:43] LABS: Body Fluid Source PERITONEAL
[2021-03-03 18:46] LABS: Appearance CLEAR (CLEAR); Body Fluid WBC 48 /mm^3; Color of fluid Yellow (COLORLESS)
== END 2021-03-03 11:15 | disposition home or self-care (01) ==
LOC: DS 07:31
PROVIDERS: ATTEND Internal Medicine Gastroenterology
DX: R18.8 Other ascites (principal); K70.30 Alcoholic cirrhosis of liver without ascites
CPT/HCPCS: 36415; 49083; 82042; 82150; 84157; 85049; 85610; 85730; 87070; 89050; 96365

== ENCOUNTER → 2021-03-19 | Day surgery (SDC) | payer OTHER ==
[~2021-03-19] MED LIST: ALBUMIN HUMAN 25% 300 ML IV ONE
[2021-03-19 08:27] VITALS: BMI 28.3
--- NOTE | 2021-03-19 09:46 | RAD REPORT ---
EXAM DESCRIPTION: US - Paracentesis Proc Guidance - 03/19/2021 9:16 am CLINICAL HISTORY: ASCITES Ascites COMPARISON: Paracentesis Proc Guidance dated 03/03/2021 FINDINGS: Informed consent was obtained and time-out was performed. Patient's abdomen was prepped and draped in the usual sterile fashion. 1% lidocaine was used for loca l anesthetic purposes. A small skin incision was made. A paracentesis catheter was guided into the peroneal cavity under son ographic guidance. A small amount of fluid was sent for requested lab studies. A large volume paracentesis was performed . The patient tolerated the procedure well. Patient was administered IV albumin per protocol following the procedure. IMPRESSION: Successful ultrasound-guided paracentesis.
[2021-03-19 10:18] LABS: Appearance CLEAR (CLEAR); Body Fluid Source PERITONEAL; Color of fluid Yellow (COLORLESS)
[2021-03-19 10:20] LABS: Body Fluid WBC 107 /mm^3
[2021-03-19 11:36] VITALS: BP 100/52; TEMP 97.4; O2SAT 97
[2021-03-24 04:33] LABS: TOTAL PROTEIN,PERITONEAL FLUID <3.0 g/dL
== END ==
LOC: DS 07:19
PROVIDERS: ATTEND Internal Medicine Gastroenterology
DX: R18.8 Other ascites (principal); K70.30 Alcoholic cirrhosis of liver without ascites
CPT/HCPCS: 87070; 36415; 82150; 89050; 84157; 82042; 96365; 49083; P9047

== ENCOUNTER 2021-04-25 08:32 | Day surgery (SDC) | payer OTHER ==
[2021-04-25 09:13] VITALS: BMI 23.3
[2021-04-25 09:20] LABS: MPV 7.4 fL (7.6-11.3)
[2021-04-25 09:32] LABS: Protime INR 1.45
--- NOTE | 2021-04-25 10:48 | RAD REPORT ---
EXAM DESCRIPTION: US - Paracentesis Proc Guidance - 04/25/2021 10:22 am CLINICAL HISTORY: ASCITES Ascites COMPARISON: Paracentesis Proc Guidance dated 03/19/2021 FINDINGS: Informed consent was obtained and time-out was performed. Patient's abdomen was prepped and draped in the usual sterile fashion. 1% lidocaine was used for loca l anesthetic purposes. A small skin incision was made. A paracentesis catheter was guided into the peroneal cavity under son ographic guidance. A small amount of fluid was sent for requested lab studies. 3 liter paracentesis was performed. The patient tolerated the procedure well. IMPRESSION: Successful ultrasound-guided paracentesis. Volume removed was limited to 3 liter per pat ient request.
[2021-04-25 11:09] VITALS: BP 100/56; TEMP 96.5; O2SAT 96
[2021-04-25 17:14] LABS: Appearance SLT. TURBID (CLEAR); Body Fluid Source PERITONEAL; Color of fluid Yellow (COLORLESS)
[2021-04-25 17:15] LABS: Body Fluid WBC 240 /mm^3
[2021-04-29 17:14] LABS: TOTAL PROTEIN,PERITONEAL FLUID <3.0 g/dL
== END 2021-04-25 11:40 | disposition home or self-care (01) ==
LOC: DS 08:32
PROVIDERS: ATTEND Internal Medicine Gastroenterology
DX: R18.8 Other ascites (principal); K70.30 Alcoholic cirrhosis of liver without ascites
CPT/HCPCS: 36415; 49083; 82042; 82150; 84157; 85049; 85610; 85730; 87070; 89050

== ENCOUNTER 2021-05-16 07:58 | Day surgery (SDC) | payer OTHER ==
[2021-05-16 08:24] VITALS: BMI 24.0
[2021-05-16] MEDS ORDERED: ALBUMIN HUMAN 25% 100 ML IV ONE (09:12)
[2021-05-16 09:34] VITALS: TEMP 97.4
[2021-05-16 11:15] VITALS: BP 107/49; O2SAT 100
[2021-05-16 11:58] LABS: Body Fluid Source PERITONEAL; Color of fluid Yellow (COLORLESS)
[2021-05-16 12:00] LABS: Appearance SLT. TURBID (CLEAR); Body Fluid WBC 406 /mm^3
--- NOTE | 2021-05-16 12:40 | RAD REPORT ---
EXAM DESCRIPTION: US - Paracentesis Proc Guidance - 05/16/2021 9:06 am CLINICAL HISTORY: ASCITES Ascites COMPARISON: Paracentesis Proc Guidance dated 04/25/2021 FINDINGS: Informed consent was obtained and time-out was performed. Patient's abdomen was prepped and draped in the usual sterile fashion. 1% lidocaine was used for loca l anesthetic purposes. A small skin incision was made. A paracentesis catheter was guided into the peroneal cavity under son ographic guidance. A small amount of fluid was sent for requested lab studies. A large volume paracentesis was performed . The patient tolerated the procedure well. Patient was administered IV albumin per protocol following the procedure. IMPRESSION: Successful ultrasound-guided paracentesis.
== END 2021-05-16 10:10 | disposition home or self-care (01) ==
LOC: DS 07:58
PROVIDERS: ATTEND Internal Medicine Hepatology
DX: R18.8 Other ascites (principal); K70.31 Alcoholic cirrhosis of liver with ascites
CPT/HCPCS: 87070; 36415; 89050; 87205; 84157; 87075; 96365; 49083; P9047

== ENCOUNTER 2022-04-24 08:13 | Emergency (ER) | payer OTHER ==
--- OUTSIDE RECORDS SUMMARY | 2022-04-24 08:17 | XMS REPORT | Continuity of Care Document ---
:1955 Author Organization [facility] t Address [address] [place] [address] [address] [place] [address] Care Team Providers Name Role Phone Lori Villar Attending Clinician Unavailable MOISES STEEN Attending Clinician Unavailable KRISTA BIRMINGHAM Attending Clinician Unavailable ART FUNEZ Attending Clinician Unavailable ANGELICA FLOYD Attending Clinician Unavailable MAICOL FITZPATRICK Attending Clinician Unavailable MARIANNE GARCÍA Attending Clinician Unavailable MD REGGIE HUTCHINSON Attending Clinician Unavailable HEMAL ABBASI Attending Clinician Unavailable CHE JUAREZ Attending Clinician Unavailable DEISI BILLINGS Attending Clinician Unavailable DEISY HENRIQUEZ Attending Clinician Unavailable MD TOMASA MENDOZA Attending Clinician Unavailable JACQUELINE JONES Attending Clinician Unavailable MD TOMASA MENDOZA Attending Clinician Unavailable MD DEISI BILLINGS Attending Clinician Unavailable MARIANNE GARCÍA Admitting Clinician Unavailable HEMAL ABBASI Admitting Clinician Unavailable CHE JUAREZ Admitting Clinician Unavailable YARA DUARTE Admitting Clinician Unavailable TOMASA MENDOZA Admitting Clinician Unavailable JACQUELINE JONES Admitting Clinician Unavailable MD TOMASA MENDOZA Admitting Clinician Unavailable Problems This patient has no known problems. Allergies, Adverse Reactions, Alerts This patient has no known allergies or adverse reactions. Medications This patient has no known medications. Procedures This patient has no known procedures. Encounters Start End Encounter Admission Attending Care Care Encounter Source Date/Time Date/Time Type Type Clinicians Facility Department ID 2022-02-18 Outpatient [place], [facility] [id number] Common 11:17:00 Lori [facility] 2022-01-05 Outpatient Aurea [facility] [id number] Common 08:00:00 Lori [facility] 2021-12-03 Outpatient [place], [facility] [id number] Common 08:29:00 Lori [facility] 2021-11-25 Outpatient [place], [facility] [id number] Common 14:12:00 Lori [facility] 2021-04-28 Outpatient [place], [facility] [id number] Common 08:27:00 Lori [facility] 2021-04-09 Outpatient [place], [facility] [id number] Common 14:22:41 Lori [id number] [facility] 2021-04-09 Outpatient [place], [facility] [id number] Common 13:56:22 Lori 27805 [facility] 2021-04-09 Outpatient [place], [facility] [id number] Common 12:35:50 Lori [id number] [facility] 2021-04-09 Outpatient [place], [facility] [id number] Common 11:08:03 Lori [id number] [facility] 2022-04-02 2022-04-02 Outpatient CELSA, [facility] [id number] [place] 00:00:00 00:00:00 MOISES [address] 2022-03-31 2022-03-31 Outpatient SAHARIA, [facility] [id number] [place] 00:00:00 00:00:00 KRISTA 979 [facility] 2022-03-31 2022-03-31 Outpatient CELSA, [facility] [id number] [place] 00:00:00 00:00:00 MOISES 843 [address] 2022-03-18 2022-03-18 Outpatient SADHU, [facility] [id number] [place] 00:00:00 00:00:00 ART 631 [facility] i 2022-02-27 2022-02-27 Outpatient MARIEL, [facility] [id number] [place] 00:00:00 00:00:00 ANGELICA 884 [facility] i 2022-02-27 2022-02-27 Outpatient MARIEL, [facility] [id number] [place] 00:00:00 00:00:00 ANGELICA [address] 2022-02-18 2022-02-18 Outpatient CELSA, [facility] [id number] [place] 00:00:00 00:00:00 MOISES [address] 2022-01-19 2022-01-19 Outpatient CELSA, [facility] [id number] [place] 00:00:00 00:00:00 MOISES [address] 2022-01-12 2022-01-12 Outpatient SAHARIA, [facility] [id number] [place] 00:00:00 00:00:00 KRISTA [address] 2022-01-12 2022-01-12 Outpatient MARIEL, [facility] [id number] [place] 00:00:00 00:00:00 ANGELICA [address] 2022-01-12 2022-01-12 Outpatient MARIEL, [facility] [id number] [place] 00:00:00 00:00:00 ANGELICA [address] 2021-12-25 2021-12-25 Outpatient SAHARIA, [facility] [id number] [place] 00:00:00 00:00:00 KRISTA [address] 2021-12-25 2021-12-25 Outpatient MARIEL, [facility] [id number] [place] 00:00:00 00:00:00 ANGELICA [address] 2021-12-25 2021-12-25 Outpatient [facility] [id number] [place] 00:00:00 00:00:[address] 2021-11-24 2021-11-24 Outpatient FITZPATRICK, [facility] [id number] [place] 00:00:00 00:00:00 MAICOL [address] 2021-11-18 2021-11-18 Outpatient CELSA, [facility] [id number] [place] 00:00:00 00:00:00 MOISES [address] 2021-10-07 2021-10-07 Outpatient CELSA, [facility] [id number] [place] 00:00:00 00:00:00 MOISES [address] 2021-09-25 2021-09-25 Outpatient SAHARIA, [facility] [id number] [place] 00:00:00 00:00:00 KRISTA 387 [facility] i 2021-09-25 2021-09-25 Outpatient MARIEL, [facility] [id number] [place] 00:00:00 00:00:00 ANGELICA 388 [address] i 2021-09-25 2021-09-25 Outpatient [facility] [id number] [place] 00:00:00 00:00:00 815 Method i 2021-09-11 2021-09-11 Inpatient SAHARIA, [facility] [id number] [place] 00:00:00 00:00:00 KRISTA 104 Method i 2021-09-11 2021-09-11 Outpatient SAHARIA, [facility] [id number] [place] 00:00:00 00:00:00 KRISTA 286 Method i 2021-09-11 2021-09-11 Inpatient FITZPATRICK, [facility] [id number] [place] 00:00:00 00:00:00 MAICOL 815 Method i 2021-09-11 2021-09-11 Inpatient [facility] [id number] [place] 00:00:00 00:00:00 025 Method i 2021-09-11 2021-09-11 Inpatient [facility] [id number] [place] 00:00:00 00:00:00 376 Method i 2021-08-27 2021-09-04 Inpatient TASTARD, [facility] [id number] [place] 00:00:00 00:00:00 MARIANNE 855 Method i 2021-07-17 2021-08-27 Inpatient AYLEEN, [facility] [id number] [place] 00:00:00 00:00:00 HEMAL 212 Method i 2021-08-14 2021-08-14 Outpatient AYLEEN, [facility] [id number] [place] 00:00:00 00:00:00 HEMAL 324 Method i 2021-08-14 2021-08-14 Outpatient AYLEEN, [facility] [id number] [place] 00:00:00 00:00:00 HEMAL 111 Method i 2021-06-15 2021-07-17 Inpatient LARRY, [facility] [id number] [place] 00:00:00 00:00:00 CHE 592 Meth rubina 2021-06-09 2021-06-15 Inpatient BLILINGS, [facility] [id number] [place] 00:00:00 00:00:00 DEISI [address] 2021-05-21 2021-06-09 Inpatient THOMAS [facility] [id number] [place] 00:00:00 00:00:00 MEYER, [address] 2021-05-08 2021-05-08 Outpatient KAREN, [facility] [id number] [place] 00:00:00 00:00:00 JACQUELINE [address] 2021-04-01 2021-04-11 Inpatient MANUELITO, [facility] [id number] [place] 00:00:00 00:00:00 DEISI [address] 2021-04-02 2021-04-02 Inpatient [facility] [id number] [place] 00:00:00 00:00:[address] Results Test Description Test Time Test Comments Results Result Comments Source SARS-CoV-2 (COVID-19) RNA [Presence] in Respiratory sp ecimen by 2021-08-28 18:30:32 MADDIE with probe detection Test Item Value Reference Range Interpretation Comme nts SARS-CoV-2 (COVID-19) RNA [Presence] in Respiratory specimen by Not detected MADDIE with probe detection (test code = 63324-9) Whether patient is employed in a healthcare setting (test code = Un known 58990-9) Whether the patient has symptoms related to condition of interest U nknown (test code = 68269-0) Whether the patient was hospitalized for condition of interest Unkn own (test code = 28746-7) Whether the patient was admitted to intensive care unit (ICU) for U nknown condition of interest (test code = 80272-0) Whether patient resides in a congregate care setting (test code = U nknown 84628-4) status (test code = 19133-0) Unknown Date and time of symptom onset (test code = 32296-4) Unknown MILTON MORMONISMEDE PANGZITYAERG-SlD-9 (COVID-19) RNA [Presence] in Respiratory specimen by MADDIE with probe [id number] 12:30:32 Test Item Value Reference Range Interpretation Comments SARS-CoV-2 (COVID-19) RNA Not detected [Presence] in Respiratory specimen by MADDIE with probe detection (test code = 18030-0) Whether patient is employed in a Unknown healthcare setting (test code = 85378-3) Whether the patient has symptoms Unknown related to condition of interest (test code = 60922-9) Whether the patient was Unknown hospitalized for condition of interest (test code = 52855-5) Whether the patient was admitted Unknown to intensive care unit (ICU) for condition of interest (test code = 76439-2) Whether patient resides in a Unknown congregate care setting (test code = 75559-0) status (test code = Unknown 44398-2) Date and time of symptom onset Unknown (test code = 39970-7) MILY VALEROSARS-CoV-2 (COVID-19) RNA [Presence] in Respiratory specimen by MADDIE with probe [id number] 12:36:15 Test Item Value Reference Range Interpretation Comments SARS-CoV-2 (COVID-19) RNA Not detected [Presence] in Respiratory specimen by MADDIE with probe detection (test code = 98327-1) Whether patient is employed in a Unknown healthcare setting (test code = 83986-5) Whether the patient has symptoms Unknown related to condition of interest (test code = 77363-0) Whether the patient was Unknown hospitalized for condition of interest (test code = 60618-9) Whether the patient was admitted Unknown to intensive care unit (ICU) for condition of interest (test code = 23689-6) Whether patient resides in a Unknown congregate care setting (test code = 39911-4) status (test code = Unknown 51670-0) Date and time of symptom onset Unknown (test code = 42919-3) MILY VALEROSARS-CoV-2 (COVID-19) RNA [Presence] in Respiratory specimen by MADDIE with probe [id number] 02:22:56 Test Item Value Reference Range Interpretation Comments SARS-CoV-2 (COVID-19) RNA Not detected [Presence] in Respiratory specimen by MADDIE with probe detection (test code = 24570-8) Whether patient is employed in a Unknown healthcare setting (test code = 22664-4) Whether the patient has symptoms Unknown related to condition of interest (test code = 67969-7) Whether the patient was Unknown hospitalized for condition of interest (test code = 83134-9) Whether the patient was admitted Unknown to intensive care unit (ICU) for condition of interest (test code = 82685-9) Whether patient resides in a Unknown congregate care setting (test code = 28689-3) status (test code = Unknown 82690-0) Date and time of symptom onset Unknown (test code = 54230-1) MILY VALEROSARS-CoV-2 (COVID-19) RNA [Presence] in Respiratory specimen by MADDIE with probe [id number] 13:44:52 Test Item Value Reference Range Interpretation Comments SARS-CoV-2 (COVID-19) RNA Not detected [Presence] in Respiratory specimen by MADDIE with probe detection (test code = 29204-9) Whether patient is employed in a Unknown healthcare setting (test code = 59891-8) Whether the patient has symptoms Unknown related to condition of interest (test code = 20283-2) Whether the patient was Unknown hospitalized for condition of interest (test code = 83959-2) Whether the patient was admitted Unknown to intensive care unit (ICU) for condition of interest (test code = 73071-8) Whether patient resides in a Unknown congregate care setting (test code = 30987-2) status (test code = Unknown 70032-2) Date and time of symptom onset Unknown (test code = 23744-2) MILY VALEROSARS-CoV-2 (COVID-19) RNA [Presence] in Respiratory specimen by MADDIE with probe [id number] 21:44:25 Test Item Value Reference Range Interpretation Comments SARS-CoV-2 (COVID-19) RNA Not detected Not-Detected [Presence] in Respiratory specimen by MADDIE with probe detection (test code = 28781-0) Whether patient is employed in a healthcare setting (test code = 02850-2) Whether the patient has symptoms related to condition of interest (test code = 82553-5) Patient was hospitalized because of this condition (test code = 05100-7) Whether the patient was admitted to intensive care unit (ICU) for condition of interest (test code = 47961-8) Whether patient resides in a congregate care setting (test code = 72886-0) MILY VALEROSARS-CoV-2 (COVID-19) RNA [Presence] in Respiratory specimen by MADDIE with probe [id number] 01:12:08 Test Item Value Reference Range Interpretation Comments SARS-CoV-2 (COVID-19) RNA Not detected Not-Detected [Presence] in Respiratory specimen by MADDIE with probe detection (test code = 95794-4) Whether patient is employed in a healthcare setting (test code = 20406-2) Whether the patient has symptoms related to condition of interest (test code = 75791-2) Patient was hospitalized because of this condition (test code = 79101-1) Whether the patient was admitted to intensive care unit (ICU) for condition of interest (test code = 78661-4) Whether patient resides in a congregate care setting (test code = 25412-2) MILY VALERO
[2022-04-24] MEDS ORDERED: DIAZEPAM 5 MG TABLET ONE (09:11)
[2022-04-24] MEDS ORDERED: HYDROCODONE/APAP 10/325 TAB ONE (09:12)
--- NOTE | 2022-04-24 09:24 | RAD REPORT ---
EXAM DESCRIPTION: RAD - Lumbar Spine 3 Views - 04/24/2022 9:15 am CLINICAL HISTORY: Back pain FINDINGS: Cement has been placed into an old L4 vertebral body fracture. Mild to moderate compression fracture T12 vertebral body. This has developed since 2013. If the patie nt has pain in this region then MRI would be recommended to assess for acuity. Bones are osteoporotic. Mild spondylosis involves lumbar spine
--- NOTE | 2022-04-24 10:37 | EDPHYS ---
Physician Documentation [facility] Name: Darryn Tristan Age: 66 yrs Sex: Male : 1955 Arrival Date: 04/24/2022 Time: 08:19 Bed 18 Private MD: ED Physician Lopez Duran HPI: 04/24 08:32 This 66 yrs old Male presents to ER via Wheelchair with complaints of Back Pain. [facility] 08:32 The patient presents with pain that is acute. The symptoms are located in the low back. juanita Is a 66-year-old male with history of diabetes mellitus, hypertension, liver and kidney transplant recipient the presents emerged part with complaints of low back pain since, symptoms began approximately 2 weeks ago after he turned. Patient states that his muscles have felt tight since. Denies any numbness to the lower extremity, denies fever, denies issues with bowel or bladder.. Historical: - Allergies: 08:30 No Known Allergies; iw - PMHx: 08:28 diabetes mellitus; Hypertensive disorder; iw - Immunization history:: Adult Immunizations unknown. - Social history:: Smoking status: unknown. ROS: 08:32 Constitutional: Negative for fever, chills, and weight loss, Cardiovascular: Negative jm for chest pain, palpitations, and edema, Respiratory: Negative for shortness of breath, cough, wheezing, and pleuritic chest pain. 08:32 Back: Positive for pain with movement. 08:32 All other systems are negative. Exam: 08:32 Constitutional: This is a well developed, well nourished patient who is awake, alert, jmm and in no acute distress. Head/Face: atraumatic. Eyes: EOMI, no conjunctival erythema appreciated ENT: Moist Mucus Membranes Neck: Trachea midline, Supple Chest/axilla: Normal chest wall appearance and motion. Cardiovascular: Regular rate and rhythm. No edema appreciated Respiratory: Normal respirations, no respiratory distress appreciated Abdomen/GI: Non distended 08:32 Back: pain, that is mild, of the lumbar area. 08:32 Musculoskeletal/extremity: ROM: intact in all extremities. 08:32 Neuro: Extensor hallicus longus intact bilaterally. 08:32 Psych: Behavior/mood is pleasant, cooperative. Vital Signs: 08:29 BP 126 / 78; Pulse 82; Resp 16; Temp 99.0; Pulse Ox 100% on R/A; iw 09:30 BP 128 / 67; Pulse 68; Resp 18; Pulse Ox 97% on R/A; kr3 MDM: 08:[address] [facility] 10:35 Data reviewed: vital signs, nurses notes. I considered the following discharge [facility] prescriptions or medication management in the emergency department Medications were administered in the Emergency Department. See MAR. Counseling: I had a detailed discussion with the patient and/or guardian regarding: the historical points, exam findings, and any diagnostic results supporting the discharge/admit diagnosis, radiology results, the need for outpatient follow up, to return to the emergency department if symptoms worsen or persist or if there are any questions or concerns that arise at home. Response to treatment: the patient's symptoms have mildly improved after treatment. ED course: Pain is moderately relieved in the ED. X-ray does reveal a T12 fracture. Patient prescribed muscle relaxers to help with the discomfort. Patient is afebrile nontoxic, I do not currently suspect spinal abscess, cord compression, cauda equina. Patient will follow-up with spine for further evaluation and otherwise given strict return precautions. Patient understood agrees plan of care. 04/24 08:33 Order name: Lumbar Spine (3 Views) XRAY; Complete Time: 09:25 [facility] Administered Medications: 09:28 Drug: Valium (diazepam) 5 mg Route: PO; kr3 11:10 Follow up: Response: No adverse reaction kr3 09:28 Drug: Berthold (HYDROcodone-acetaminophen) 10 mg-325 mg 1 tabs Route: PO; kr3 11:10 Follow up: Response: No adverse reaction kr3 10:58 Drug: traMADol 50 mg Route: PO; kr3 11:09 Follow up: Response: No adverse reaction kr3 Disposition: 13:12 Co-signature as Attending Physician, Lopez Duran MD I reviewed the patient's care rt provided by the Advanced Practice Provider and agree with the diagnosis and treatment plan. Disposition Summary: 04/24/22 10:37 Discharge Ordered Location: Home [facility] Condition: Stable [facility] Diagnosis - Fracture of thoracic vertebrae [facility] Followup: [facility] - With: Private Physician - When: 2 - 3 days - Reason: Recheck today's complaints, Continuance of care, Re-evaluation by your physician Discharge Instructions: - Discharge Summary Sheet [facility] - Thoracic Spine Fracture jm Forms: - Medication Reconciliation Form m - Thank You Letter jmm - Antibiotic Education [facility] - Prescription Opioid Use [facility] Prescriptions: - Zanaflex 4 mg Oral Tablet - take 1 tablet by ORAL route every 8 hours As needed; 20 tablet; Refills: 0, jmm Product Selection Permitted Signatures: Dispatcher [employer] EDMS Dave Das PA PA jmm Williams, Irene, RN RN Elvie Velazquez RN RN kr3 Lopez Duran MD MD rt Corrections: (The following items were deleted from the chart) 08: Home Meds: aspirin 81 mg Oral chew 1 tab once daily; [facility] 08:28 Home Meds: atorvastatin 40 mg Oral tab 1 tab once daily; [facility]
--- NOTE | 2022-04-24 10:37 | ER ---
Nurse's Notes [facility] Name: Darryn Tristan Age: 66 yrs Sex: Male : 1955 Arrival Date: 04/24/2022 Time: 08:19 Bed 18 Private MD: Diagnosis: Fracture of thoracic vertebrae Presentation: 04/24 08:26 Chief complaint: Patient states: previous injury to back last year, is having a flare iw up of lower back pain X 2 weeks. Coronavirus screen: At this time, the client does not indicate any symptoms associated with coronavirus-19. Ebola Screen: Patient negative for fever greater than or equal to 101.5 degrees Fahrenheit, and additional compatible Ebola Virus Disease symptoms Patient denies exposure to infectious person. Patient denies travel to an Ebola-affected area in the 21 days before illness onset. No symptoms or risks identified at this time. Initial Sepsis Screen: Does the patient meet any 2 criteria? No. Patient's initial sepsis screen is negative. Does the patient have a suspected source of infection? No. Patient's initial sepsis screen is negative. Risk Assessment: Do you want to hurt yourself or someone else? Patient reports no desire to harm self or others. Onset of symptoms was April 11, 2022. 08:26 Method Of Arrival: Wheelchair iw 08:26 Acuity: ANGEL 3 iw Historical: - Allergies: 08:30 No Known Allergies; iw - PMHx: 08:28 diabetes mellitus; Hypertensive disorder; iw - Immunization history:: Adult Immunizations unknown. - Social history:: Smoking status: unknown. Screenin:08 [facility] ED Fall Risk Assessment (Adult) History of falling in the last 3 months, kr3 including since admission No falls in past 3 months (0 pts) Confusion or Disorientation No (0 pts) Intoxicated or Sedated No (0 pts) Impaired Gait No (0 pts) Mobility Assist Device Used No (0 pt) Altered Elimination No (0 pt) Score/Fall Risk Level 0 - 2 = Low Risk Oriented to surroundings, Maintained a safe environment, Assessed \T\ reinforced patient's understanding of fall precautions, Hourly rounding (assess needs \T\ fall precautionary measures) done. Abuse screen: Denies threats or abuse. Nutritional screening: No deficits noted. Tuberculosis screening: No symptoms or risk factors identified. Assessment: 09:15 Respiratory: Airway is patent Trachea Respiratory effort is even, unlabored, kr3 Respiratory pattern is regular, symmetrical. GI: Reports constipation. : No signs and/or symptoms were reported regarding the genitourinary system. EENT: No signs and/or symptoms were reported regarding the EENT system. Derm: No deficits noted. Musculoskeletal: patient uses walker or wheelchair to ambulate due to back pain. 09:55 General: Appears in no apparent distress. uncomfortable, Behavior is calm, cooperative, kr3 appropriate for age. Pain: Complains of pain in back. Neuro: Level of Consciousness is awake, alert, obeys commands, Oriented to person, place, time, situation. Cardiovascular: Patient's skin is warm and dry. Vital Signs: 08:29 BP 126 / 78; Pulse 82; Resp 16; Temp 99.0; Pulse Ox 100% on R/A; iw 09:30 BP 128 / 67; Pulse 68; Resp 18; Pulse Ox 97% on R/A; kr3 ED Course: 08:19 Patient arrived in ED. rg4 08:22 Dave Das PA is PHCP. jmm 08:22 Lopez Duran MD is Attending Physician. jmm 08:28 Triage completed. iw 08:29 Arm band placed on. iw 08:39 Patient has correct armband on for positive identification. Fall risk band placed. Bed mm9 in low position. Call light in reach. Side rails up X 1. Pulse ox on. NIBP on. 09:17 Lumbar Spine (3 Views) XRAY In Process Unspecified. EDMS 09:27 Elvie Velazquez, RN is Primary Nurse. kr3 11:09 No provider procedures requiring assistance completed. Patient did not have IV access kr3 during this emergency room visit. Administered Medications: 09:28 Drug: Valium (diazepam) 5 mg Route: PO; kr3 11:10 Follow up: Response: No adverse reaction kr3 09:28 Drug: Macy (HYDROcodone-acetaminophen) 10 mg-325 mg 1 tabs Route: PO; kr3 11:10 Follow up: Response: No adverse reaction kr3 10:58 Drug: traMADol 50 mg Route: PO; kr3 11:09 Follow up: Response: No adverse reaction kr3 Medication: 11:09 VIS not applicable for this client. kr3 Outcome: 10:37 Discharge ordered by . juanita 11:08 Patient left the ED. kr3 11:09 Discharged to home via wheelchair. kr3 11:09 Condition: stable 11:09 Discharge instructions given to patient, Instructed on discharge instructions, follow up and referral plans. medication usage, Demonstrated understanding of instructions, follow-up care, medications, Prescriptions given X 1. Signatures: Dispatcher [employer] EDMS Dave Das PA PA jmm Williams, Irene, RN RN Karen Rowe rg4 Elvie Velazquez RN RN kr3 Kimberly Vergara mm9 Corrections: (The following items were deleted from the chart) 08: 08:28 Home Meds: aspirin 81 mg Oral chew 1 tab once daily; [facility] 08:29 08:28 Home Meds: atorvastatin 40 mg Oral tab 1 tab once daily; [facility] 09:58 09:57 BP 128 / 67; Pulse 68bpm; Resp 18bpm; Pulse Ox 97% RA; kr3 kr3
[2022-04-24] MEDS ORDERED: TRAMADOL HCL 50 MG TAB ONE (10:54)
[2022-04-24 11:14] VITALS: TEMP 99
[2022-04-24 11:15] VITALS: BP 128/67; O2SAT 97
== END 2022-04-24 11:08 | disposition home or self-care (01) ==
LOC: ER 08:13
DX: S22.089A Unspecified fracture of T11-T12 vertebra, initial encounter for closed fracture (principal)
CPT/HCPCS: 72100; 99284

== ENCOUNTER 2022-04-25 06:23 | Emergency (ER) | payer OTHER ==
--- OUTSIDE RECORDS SUMMARY | 2022-04-25 06:26 | XMS REPORT | Continuity of Care Document ---
:1955 Author Organization [facility] t Address [address] [place] [address] [address] [place] [address] Care Team Providers Name Role Phone Lori [...] Type Clinicians Facility Department ID 2022-02-18 Outpatient Goodell, [facility] [id number] Common 11:17:00 oLri [facility] 2022-01-05 Outpatient Aurea [facility] [id number] Common 08:00:00 Lori [facility] 2021-12-03 Outpatient Goodell, [facility] [id number] Common 08:29:00 Lori [facility] 2021-11-25 Outpatient Goodell, [facility] [id number] Common 14:12:00 Lori [facility] 2021-04-28 Outpatient Goodell, [facility] [id number] Common 08:27:00 Lori [facility] 2021-04-09 Outpatient Goodell, [facility] [id number] Common 14:22:41 Lori [id number] [facility] 2021-04-09 Outpatient Goodell, [facility] [id number] Common 13:56:22 Lori 14371 [facility] 2021-04-09 Outpatient Goodell, [facility] [id number] Common 12:35:50 Lori [id number] [facility] 2021-04-09 Outpatient Goodell, [facility] ST[facility] [id number] Common 11:08:03 Lori [id number] [facility] 2022-04-02 2022-04-02 Outpatient CELSA, [facility] [id number] 00:00:00 00:00:00 MOISES [address] 2022-03-31 2022-03-31 Outpatient SAHARIA, [facility] [id number] 00:00:00 00:00:00 KRISTA 9[address] 2022-03-31 2022-03-31 Outpatient CELSA, [facility] [id number] 00:00:00 00:00:00 MOISES [address] 2022-03-18 2022-03-18 Outpatient SADHU, [facility] [id number] [place] 00:00:00 00:00:00 ART 6[address] 2022-02-27 2022-02-27 Outpatient MARIEL, [facility] [id number] [place] 00:00:00 00:00:00 ANGELICA 884 [address] 2022-02-27 2022-02-27 Outpatient MARIEL, [facility] [id number] [place] 00:00:00 00:00:00 ANGELICA [address] 2022-02-18 2022-02-18 Outpatient CELSA, [facility] [id number] 00:00:00 00:00:[address] MOISES [address] 2022-01-19 2022-01-19 Outpatient CELSA, [facility] [id number] 00:00:00 00:00:[address] MOISES [address] 2022-01-12 2022-01-12 Outpatient SAHARIA, [facility] [id number] 00:00:00 00:00:00 KRISTA [address] 2022-01-12 2022-01-12 Outpatient MARIEL, [facility] [id number] [place] 00:00:00 00:00:00 ANGELICA [address] 2022-01-12 2022-01-12 Outpatient MARIEL, [facility] [id number] [place] 00:00:00 00:00:00 ANGELICA [address] 2021-12-25 2021-12-25 Outpatient SAHARIA, [facility] [id number] [place] 00:00:00 00:00:00 KRISTA [address] 2021-12-25 2021-12-25 Outpatient MARIEL, [facility] [id number] [place] 00:00:00 00:00:00 ANGELICA [address] 2021-12-25 2021-12-25 Outpatient [facility] [id number] 00:00:00 00:00:[address] 2021-11-24 2021-11-24 Outpatient FITZPATRICK, [facility] [id number] [place] 00:00:00 00:00:00 MAICOL [address] 2021-11-18 2021-11-18 Outpatient CELSA, [facility] [id number] [place] 00:00:00 00:00:00 MOISES [address] 2021-10-07 2021-10-07 Outpatient CELSA, [facility] [id number] [place] 00:00:00 00:00:00 MOISES [address] 2021-09-25 2021-09-25 Outpatient SAHARIA, [facility] [id number] [place] 00:00:00 00:00:00 KRISTA 387 [address] 2021-09-25 2021-09-25 Outpatient MARIEL, [facility] [id number] [place] 00:00:00 00:00:00 ANGELICA [address] 2021-09-25 2021-09-25 Outpatient [facility] [id number] 00:00:00 00:00:00 815 [address] i 2021-09-11 2021-09-11 Inpatient SAHARIA, [facility] [id number] [place] 00:00:00 00:00:00 KRISTA 104 [address] i 2021-09-11 2021-09-11 Outpatient SAHARIA, [facility] [id number] [place] [place] 00:00:00 00:00:00 KRISTA 286 [address] i 2021-09-11 2021-09-11 Inpatient FITZPATRICK, [facility] [id number] [place] 00:00:00 00:00:00 MAICOL 815 [address] i 2021-09-11 2021-09-11 Inpatient [facility] [id number] [place] [place] 00:00:00 00:00:00 025 Method i 2021-09-11 2021-09-11 Inpatient [facility] [id number] 00:00:00 00:00:00 376 [address] i 2021-08-27 2021-09-04 Inpatient TASTARD, [facility] [id number] 00:00:00 00:00:00 MARIANNE 855 [address] i 2021-07-17 2021-08-27 Inpatient AYLEEN, [facility] [id number] 00:00:00 00:00:00 HEMAL [address] 2021-08-14 2021-08-14 Outpatient AYLEEN, [facility] [id number] 00:00:00 00:00:00 HEMAL 324 [address] i 2021-08-14 2021-08-14 Outpatient AYLEEN, [facility] [id number] 00:00:00 00:00:00 HEMAL 111 [address] 2021-06-15 2021-07-17 Inpatient LARRY, [facility] [id number] 00:00:00 00:00:00 CHE 592 [address] 2021-06-09 2021-06-15 Inpatient BILLINGS, [facility] [id number] [place] 00:00:00 00:00:[address] DEISI [address] 2021-05-21 2021-06-09 Inpatient THOMAS [facility] [id number] 00:00:00 00:00:00 MEYER, [address] 2021-05-08 2021-05-08 Outpatient KAREN, [facility] [id number] 00:00:00 00:00:00 JACQUELINE [address] 2021-04-01 2021-04-11 Inpatient MANUELITO, [facility] [id number] [place] [place] 00:00:00 00:00:00 DEISI [address] 2021-04-02 2021-04-02 Inpatient [facility] [id number] 00:00:00 00:00:[address] Results Test Description Test Time Test Comments Results Result Comments Source SARS-CoV-2 (COVID-19) RNA [Presence] in Respiratory sp ecimen by 2021-08-28 18:30:32 MADDIE with probe detection Test Item Value Reference Range Interpretation Comme nts SARS-CoV-2 (COVID-19) RNA [Presence] in Respiratory specimen by Not detected MADDIE with probe detection (test code = 51022-7) Whether patient is employed in a healthcare setting (test code = Un known 34367-7) Whether the patient has symptoms related to condition of interest U nknown (test code = 65747-5) Whether the patient was hospitalized for condition of interest Unkn own (test code = 93427-5) Whether the patient was admitted to intensive care unit (ICU) for U nknown condition of interest (test code = 24634-3) Whether patient resides in a congregate care setting (test code = U nknown 70947-6) status (test code = 35105-3) Unknown Date and time of symptom onset (test code = 39249-9) Unknown FRANKLIN YAZDANISMEDE PANGMKYGJYSN-AcP-1 (COVID-19) RNA [Presence] in Respiratory specimen by MADDIE with probe [id number] 12:30:32 Test Item Value Reference Range Interpretation Comments SARS-CoV-2 (COVID-19) RNA Not detected [Presence] in Respiratory specimen by MADDIE with probe detection (test code = 93128-2) Whether patient is employed in a Unknown healthcare setting (test code = 62728-6) Whether the patient has symptoms Unknown related to condition of interest (test code = 67900-3) Whether the patient was Unknown hospitalized for condition of interest (test code = 37975-9) Whether the patient was admitted Unknown to intensive care unit (ICU) for condition of interest (test code = 08569-2) Whether patient resides in a Unknown congregate care setting (test code = 46751-3) status (test code = Unknown 46789-6) Date and time of symptom onset Unknown (test code = 62345-7) MILY VALEROSARS-CoV-2 (COVID-19) RNA [Presence] in Respiratory specimen by MADDIE with probe [id number] 12:36:15 Test Item Value Reference Range Interpretation Comments SARS-CoV-2 (COVID-19) RNA Not detected [Presence] in Respiratory specimen by MADDIE with probe detection (test code = 47350-2) Whether patient is employed in a Unknown healthcare setting (test code = 27665-3) Whether the patient has symptoms Unknown related to condition of interest (test code = 35329-4) Whether the patient was Unknown hospitalized for condition of interest (test code = 94152-6) Whether the patient was admitted Unknown to intensive care unit (ICU) for condition of interest (test code = 68444-5) Whether patient resides in a Unknown congregate care setting (test code = 17000-1) status (test code = Unknown 54653-9) Date and time of symptom onset Unknown (test code = 43135-8) MILY VALEROSARS-CoV-2 (COVID-19) RNA [Presence] in Respiratory specimen by MADDIE with probe [id number] 02:22:56 Test Item Value Reference Range Interpretation Comments SARS-CoV-2 (COVID-19) RNA Not detected [Presence] in Respiratory specimen by MADDIE with probe detection (test code = 90898-2) Whether patient is employed in a Unknown healthcare setting (test code = 27916-9) Whether the patient has symptoms Unknown related to condition of interest (test code = 81253-4) Whether the patient was Unknown hospitalized for condition of interest (test code = 64546-9) Whether the patient was admitted Unknown to intensive care unit (ICU) for condition of interest (test code = 16127-1) Whether patient resides in a Unknown congregate care setting (test code = 20935-3) status (test code = Unknown 09307-4) Date and time of symptom onset Unknown (test code = 39408-5) MILY VALEROSARS-CoV-2 (COVID-19) RNA [Presence] in Respiratory specimen by MADDIE with probe [id number] 13:44:52 Test Item Value Reference Range Interpretation Comments SARS-CoV-2 (COVID-19) RNA Not detected [Presence] in Respiratory specimen by MADDIE with probe detection (test code = 33996-0) Whether patient is employed in a Unknown healthcare setting (test code = 36988-1) Whether the patient has symptoms Unknown related to condition of interest (test code = 84720-6) Whether the patient was Unknown hospitalized for condition of interest (test code = 10027-0) Whether the patient was admitted Unknown to intensive care unit (ICU) for condition of interest (test code = 83645-6) Whether patient resides in a Unknown congregate care setting (test code = 91474-8) status (test code = Unknown 80438-8) Date and time of symptom onset Unknown (test code = 75755-4) MILY VALEROSARS-CoV-2 (COVID-19) RNA [Presence] in Respiratory specimen by MADDIE with probe [id number] 21:44:25 Test Item Value Reference Range Interpretation Comments SARS-CoV-2 (COVID-19) RNA Not detected Not-Detected [Presence] in Respiratory specimen by MADDIE with probe detection (test code = 84914-6) Whether patient is employed in a healthcare setting (test code = 04487-4) Whether the patient has symptoms related to condition of interest (test code = 61673-6) Patient was hospitalized because of this condition (test code = 74617-7) Whether the patient was admitted to intensive care unit (ICU) for condition of interest (test code = 91028-8) Whether patient resides in a congregate care setting (test code = 26022-0) MILY VALEROSARS-CoV-2 (COVID-19) RNA [Presence] in Respiratory specimen by MADDIE with probe [id number] 01:12:08 Test Item Value Reference Range Interpretation Comments SARS-CoV-2 (COVID-19) RNA Not detected Not-Detected [Presence] in Respiratory specimen by MADDIE with probe detection (test code = 60834-7) Whether patient is employed in a healthcare setting (test code = 04947-6) Whether the patient has symptoms related to condition of interest (test code = 98029-0) Patient was hospitalized because of this condition (test code = 17655-5) Whether the patient was admitted to intensive care unit (ICU) for condition of interest (test code = 82932-4) Whether patient resides in a congregate care setting (test code = 64073-8) MILY VALERO
[2022-04-25] MEDS ORDERED: DIAZEPAM 5 MG TABLET ONE (06:53)
[2022-04-25] MEDS ORDERED: MORPHINE 4 MG/ML SYR ONE (06:54)
[2022-04-25 07:33] LABS: Hematocrit 40.4 % (39.6-49.0); Lymphocytes % 14.1 % (15.3-44.8); MCV 97.1 fL (80-100); MPV 7.7 fL (7.6-11.3); RBC Red Blood Cell Count 4.16 M/uL (4.33-5.43)
[2022-04-25 07:39] LABS: Albumin 3.5 g/dL (3.4-5.0); Protein, Total 7.1 g/dL (6.4-8.2)
[2022-04-25 07:41] LABS: Potassium 4.5 mmol/L (3.5-5.1)
[2022-04-25] MEDS ORDERED: NA CHLORIDE 0.9% 500 ML ONE (07:53)
--- NOTE | 2022-04-25 08:27 | RAD REPORT ---
EXAM DESCRIPTION: CTAbdomen Pelvis W Contrast - 04/25/2022 8:11 am CLINICAL HISTORY: back pain COMPARISON: Lumbar spine radiograph 04/24/2022 TECHNIQUE: CT of the abdomen and pelvis was performed with IV contrast. All CT scans are performed using dose optimization technique as appropriate and may include automated exposure control or mA/KV adjustment according to patient size. FINDINGS: Lower chest: Nodularity in the anterior segment of the left lower lobe somewhat hyperdense and probably chronic. Liver: Surgical changes from liver transplant. Biliary: Cholecystectomy Stomach: No significant focal abnormality. Duodenum: No significant focal abnormality. Pancreas: No significant abnormality. Spleen: Splenomegaly. Adrenal: No suspicious lesions. Kidney/ureter: Mildly atrophic [place] kidneys. Right iliac fossa renal transplant. No hydronephrosis. No renal calculi. Retroperitoneum: No retroperitoneal adenopathy. Vascular: Atherosclerosis. Bowel: Moderate stool. No bowel obstruction.. Peritoneum: No ascites or free air. Bladder: Grossly unremarkable. Reproductive: No adnexal masses. Bones: No acute fracture. L4 kyphoplasty. T12 compression fracture with approximately 30% maximal hei ght loss. This may be subacute. Other: n/a IMPRESSION: T12 compression fracture with approximately 30% maximum loss of height and no bony retro pulsion is favored subacute. This was noted on the radiograph from 04/24/2022. No acute intra-abdomin al abnormality.
--- NOTE | 2022-04-25 08:53 | EDPHYS ---
Physician Documentation [facility] Name: Darryn Tristan Age: 66 yrs Sex: Male : 1955 Arrival Date: 04/25/2022 Time: 06:26 Bed 5 Private MD: SEVEN Physician Socrates Cole HPI: 04/25 06:56 This 66 yrs old Male presents to ER via EMS with complaints of back pain. rn 06:56 The patient presents with pain that is acute. The symptoms are located in the lumbar rn area. Onset: The symptoms/episode began/occurred 2 week(s) ago. Associated signs and symptoms: Pertinent positives: abdominal pain, constipation, Pertinent negatives: dysuria, fever. Modifying factors: The patient symptoms are alleviated by nothing, the patient symptoms are aggravated by any movement. Severity of symptoms: At their worst the symptoms were moderate, in the emergency department the symptoms are unchanged. The patient has experienced similar episodes in the past. The patient has been recently seen by a physician:. Seen yesterday, xrays obtained showed t12 spinal fracture, reports started hurting 2 weeks ago. Reports constipation and abd pain. Pain got worse after got home. . Historical: - Allergies: 06:32 No Known Allergies; aa9 - Home Meds: 06:32 tizanidine 4 mg oral tab every 6-8 hours for muscle spasm [Active]; aa9 - PMHx: 06:32 diabetes mellitus; Hypertensive disorder; aa9 - PSHx: 06:32 liver transplant; kidney transplant; aa9 - Immunization history:: Client reports receiving the 2nd dose of the Covid vaccine. - Social history:: Smoking status: Patient denies any tobacco usage or history of. - Family history:: not pertinent. - Hospitalizations: : No recent hospitalization is reported. ROS: 06:56 Constitutional: Negative for fever, chills, and weight loss, Neck: Negative for injury, rn pain, and swelling, Cardiovascular: Negative for chest pain, palpitations, and edema, Respiratory: Negative for shortness of breath, cough, wheezing, and pleuritic chest pain, Abdomen/GI: + abd pain and constipation Back: Negative for injury : Negative for injury, bleeding, discharge, and swelling, MS/Extremity: Negative for injury and deformity, Skin: Negative for injury, rash, and discoloration, Neuro: Negative for headache, weakness, numbness, tingling, and seizure. Exam: 06:56 Constitutional: This is a well developed, well nourished patient who is awake, alert, rn and in no acute distress. Cardiovascular: Regular rate and rhythm. No pulse deficits. Respiratory: No increased work of breathing, no retractions or nasal flaring. Abdomen/GI: soft, mild mid abd tenderness, no distension, no peritoneal signs Neuro: Awake and alert, GCS 15 Vital Signs: 06:30 BP 149 / 72; Pulse 67; Resp 19 S; Temp 97.9(O); Pulse Ox 100% on R/A; Weight 84.37 kg aa9 (R); Height 6 ft. 3 in. (190.50 cm) (R); 07:36 BP 125 / 71; Pulse 65; Resp 16; Pulse Ox 99% on R/A; ko1 06:30 Body Mass Index 23.25 (84.37 kg, 190.50 cm) aa9 MDM: 06:40 Patient medically screened. rn 04/25 06:47 Order name: CBC with Diff; Complete Time: 08:51 rn 04/25 06:47 Order name: CMP; Complete Time: 08:51 rn 04/25 06:47 Order name: Lipase; Complete Time: 08:51 rn 04/25 06:47 Order name: CT Abd/Pelvis - IV Contrast Only; Complete Time: 08:51 rn 04/25 06:47 Order name: IV Saline Lock; Complete Time: 07:04 rn 04/25 06:47 Order name: Labs collected and sent; Complete Time: 07:04 rn Administered Medications: 06:52 Drug: Valium (diazepam) 5 mg Route: PO; aa9 08:06 Follow up: Response: No adverse reaction; No change in condition ko1 07:04 Drug: morphine 4 mg Route: IVP; Infused Over: 4 mins; Site: right forearm; aa9 08:06 Follow up: Response: No adverse reaction; No change in condition ko1 07:48 Drug: NS 0.9% 500 ml Route: IV; Rate: bolus; Site: right forearm; ko1 08:06 Follow up: Response: No adverse reaction; IV Status: Completed infusion; IV Intake: ko1 500ml 07:59 Drug: NS 0.9% 1000 ml Route: IV; Rate: 125 ml/hr; Site: right forearm; ko1 Disposition Summary: 04/25/22 08:52 Discharge Ordered Location: Home teddy Problem: new teddy Symptoms: have improved teddy Condition: Stable teddy Diagnosis - Fracture of thoracic vertebra - T12 compression fracture 30%, no retro tdedy Followup: teddy - With: Private Physician - When: 2 - 3 days - Reason: Recheck today's complaints, Continuance of care, Re-evaluation by your physician Followup: teddy - With: Santana Sorensen MD - When: 2 - 3 days - Reason: Recheck today's complaints, Re-evaluation by your physician Discharge Instructions: - Discharge Summary Sheet teddy - Acute Back Pain, Adult teddy - Spinal Compression Fracture teddy Forms: - Medication Reconciliation Form teddy - Thank You Letter teddy - Antibiotic Education teddy - Prescription Opioid Use teddy Prescriptions: - Valium 5 mg Oral Tablet - take 1 tablet by ORAL route every 8 hours As needed; 20 tablet; Refills: 0, teddy Product Selection Permitted Signatures: Dispatcher [employer] Socrates Car MD MD cha Mickail, Joel, PA PA jmm Nieto, Roman, MD MD rn Katharina Gonsales, RN RN aa9 Mary Carrion, RN RN ko1
--- NOTE | 2022-04-25 08:53 | ER ---
Nurse's Notes [facility] Name: Darryn Tristan Age: 66 yrs Sex: Male : 1955 Arrival Date: 04/25/2022 Time: 06:26 Bed 5 Private MD: Diagnosis: Fracture of thoracic vertebra-T12 compression fracture 30%, no retro Presentation: 04/25 06:30 Chief complaint: EMS states: toned out for back pain unresolved with medication, pt aa9 states he was here last night and the medication he was given is not working. Coronavirus screen: Vaccine status: Patient reports receiving the 2nd dose of the covid vaccine. Ebola Screen: No symptoms or risks identified at this time. Initial Sepsis Screen: Does the patient meet any 2 criteria? No. Patient's initial sepsis screen is negative. Does the patient have a suspected source of infection? No. Patient's initial sepsis screen is negative. Risk Assessment: Do you want to hurt yourself or someone else? Patient reports no desire to harm self or others. Onset of symptoms was April 25, 2022. 06:30 Method Of Arrival: EMS: [facility] aa9 06:30 Acuity: ANGEL 4 aa9 Triage Assessment: 06:33 General: Appears uncomfortable, slender, Behavior is calm, cooperative. Pain: Complains aa9 of pain in mid back area and right mid back Pain at worst was 10 out of 10 on a pain scale. Quality of pain is described as sharp, Is intermittent, lasting a few seconds. Alleviated by repositioning, Noted to be grimacing. 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 Cardiovascular: Patient's skin is warm and dry. Respiratory: Airway is patent Respiratory effort is even, unlabored. GI: No signs and/or symptoms were reported involving the gastrointestinal system. : No signs and/or symptoms were reported regarding the genitourinary system. Derm: Skin is intact, is healthy with good turgor. Historical: - Allergies: 06:32 No Known Allergies; aa9 - Home Meds: 06:32 tizanidine 4 mg oral tab every 6-8 hours for muscle spasm [Active]; aa9 - PMHx: 06:32 diabetes mellitus; Hypertensive disorder; aa9 - PSHx: 06:32 liver transplant; kidney transplant; aa9 - Immunization history:: Client reports receiving the 2nd dose of the Covid vaccine. - Social history:: Smoking status: Patient denies any tobacco usage or history of. - Family history:: not pertinent. - Hospitalizations: : No recent hospitalization is reported. Screenin:37 [facility] ED Fall Risk Assessment (Adult) History of falling in the last 3 months, aa9 including since admission Yes- single mechanical fall (1 pt) Confusion or Disorientation No (0 pts) Intoxicated or Sedated No (0 pts) Impaired Gait Yes (1 pt) Mobility Assist Device Used Yes (1 pt) Altered Elimination No (0 pt) Score/Fall Risk Level 3 or more points = High Risk Oriented to surroundings, Maintained a safe environment, Educated pt \T\ family on fall prevention, incl call for assistance when getting out of bed. Abuse screen: Denies threats or abuse. Denies injuries from another. Nutritional screening: No deficits noted. Tuberculosis screening: No symptoms or risk factors identified. Assessment: 06:36 General: Appears uncomfortable, slender, Reports I was here yesterday and they gave me aa9 tizanidine 4 mg for my back pain and it does not seem to be working very well, I have back pain the comes and goes when I move a certain way due to a back injury about 2 weeks ago. 07:36 Reassessment: No changes from previously documented assessment. Patient is alert, ko1 oriented x 3, equal unlabored respirations, skin warm/dry/pink. Patient states feeling better. Vital Signs: 06:30 BP 149 / 72; Pulse 67; Resp 19 S; Temp 97.9(O); Pulse Ox 100% on R/A; Weight 84.37 kg aa9 (R); Height 6 ft. 3 in. (190.50 cm) (R); 07:36 BP 125 / 71; Pulse 65; Resp 16; Pulse Ox 99% on R/A; ko1 06:30 Body Mass Index 23.25 (84.37 kg, 190.50 cm) aa9 ED Course: 06:26 Patient arrived in ED. vc1 06:30 Katharina Gonsales, JOESPH is Primary Nurse. aa9 06:32 Triage completed. aa9 06:35 Arm band placed on. aa9 06:35 Patient has correct armband on for positive identification. Bed in low position. Side aa9 rails up X2. 06:40 Andrey Adan MD is Attending Physician. rn 07:04 CBC with Diff Sent. aa9 07:04 CMP Sent. aa9 07:04 Lipase Sent. aa9 07:[address] Scan. ko1 07:39 Attending Physician role handed off by Andrey Adan MD teddy 07:39 Socrates Cole MD is Attending Physician. teddy 08:13 CT Abd/Pelvis - IV Contrast Only In Process Unspecified. EDMS 08:51 Santana Sorensen MD is Referral Physician. teddy 09:27 No provider procedures requiring assistance completed. IV discontinued, intact, ko1 bleeding controlled, No redness/swelling at site. Pressure dressing applied. Administered Medications: 06:52 Drug: Valium (diazepam) 5 mg Route: PO; aa9 08:06 Follow up: Response: No adverse reaction; No change in condition ko1 07:04 Drug: morphine 4 mg Route: IVP; Infused Over: 4 mins; Site: right forearm; aa9 08:06 Follow up: Response: No adverse reaction; No change in condition ko1 07:48 Drug: NS 0.9% 500 ml Route: IV; Rate: bolus; Site: right forearm; ko1 08:06 Follow up: Response: No adverse reaction; IV Status: Completed infusion; IV Intake: ko1 500ml 07:59 Drug: NS 0.9% 1000 ml Route: IV; Rate: 125 ml/hr; Site: right forearm; ko1 Medication: 09:27 VIS not applicable for this client. ko1 Intake: 08:06 IV: 500ml; Total: 500ml. ko1 Outcome: 08:52 Discharge ordered by . teddy 09:27 Discharged to home via wheelchair, with family. ko1 09:27 Condition: improved 09:27 Discharge instructions given to patient, Instructed on discharge instructions, follow up and referral plans. medication usage, Demonstrated understanding of instructions, follow-up care, medications, Prescriptions given X 1. 09:27 Patient left the ED. ko1 Signatures: Dispatcher [employer] [facility] Socrates Cole MD MD cha Nieto, Roman, MD MD rn Calcote, Vanessa RN RN vc1 Katharina Gonsales RN RN aa9 Murali, Mary, RN RN ko1
[2022-04-25 09:32] VITALS: TEMP 97.9
[2022-04-25 09:33] VITALS: BP 125/71; O2SAT 99
== END 2022-04-25 09:27 | disposition home or self-care (01) ==
LOC: ER 06:23
DX: S22.080A Wedge compression fracture of T11-T12 vertebra, initial encounter for closed fracture (principal); E11.9 Type 2 diabetes mellitus without complications; I10 Essential (primary) hypertension; Z94.0 Kidney transplant status; Z94.4 Liver transplant status
CPT/HCPCS: 85025; 36415; 83690; 80053; 74177; 96374; 99284; Q9967; J7040